=== PATIENT | female | born 1940 | race African-American/Black ===

== ENCOUNTER 2016-09-26 17:39 | Inpatient (IN) | payer MEDICARE ==
[~2016-09-26] VITALS: Ht 165.1 cm; Wt 68.9 kg
[2016-09-26 18:24] LABS: BASOPHILS % 0.9 % (0.0-2.0); HEMATOCRIT. 40.4 % (36.0-48.0); HEMOGLOBIN. 13.1 g/dL (12.0-16.0); LYMPHOCYTES % 36.3 % (20.0-50.0); MEAN CORPUSCULAR HEMOGLOBIN 25.3 pg (28.0-32.0); MEAN CORPUSCULAR VOLUME 78.1 fL (81.0-99.0); MEAN PLATELET VOLUME 8.6 fl (7.4-10.4); MONOCYTES % 6.4 % (2.0-8.0); NEUTROPHILS % 54.4 % (40.0-76.0); PLATELET 242 x1000/uL (130-400); RED BLOOD CELL COUNT 5.17 mill/uL (4.2-5.4); RED CELL DISTRIBUTION WIDTH 15.5 % (11.6-14.6)
[2016-09-26 18:27] LABS: INR 1.1; PROTHROMBIN TIME 11.2 sec
[2016-09-26 18:37] LABS: CARBON DIOXIDE 29 mEq/L (21-32); CHLORIDE 102 mEq/L (98-107); TROPONIN I < 0.02 ng/mL (0.00-0.04)
[2016-09-26] MEDS ORDERED: HYDRALAZINE HCL 50MG TABLET PO ONE (21:30)
[2016-09-26] MEDS ORDERED: HYDRALAZINE HCL 25MG TABLET PO NR (21:44)
[2016-09-27] VITALS (7 sets, daily range): BP systolic 134–193; BP diastolic 62–80
[2016-09-27] MEDS ORDERED: DEXTROSE 50% WATER 50ML SYRINGE IV PRN (01:45)
[2016-09-27] MEDS ORDERED: HYDROCODONE/ACETAMINOPHEN 5/325MG TABLET PO PRN (02:00)
[2016-09-27] MEDS ORDERED: ONDANSETRON HCL 4MG/2ML VIAL IV PRN (02:15)
[2016-09-27] MEDS: CLONIDINE 0.1MG TABLET PO PRN ×2 (05:36→17:12)
[2016-09-27] MEDS: BLOOD SUGAR DIAGNOSTIC STRIP TEST SCH ×4 (05:58→21:09)
[2016-09-27 06:25] LABS: BASOPHILS % 0.9 % (0.0-2.0); EOSINOPHILS % 3.6 % (0.0-5.0); HEMATOCRIT. 34.9 % (36.0-48.0); HEMOGLOBIN. 11.3 g/dL (12.0-16.0); LYMPHOCYTES % 44.3 % (20.0-50.0); MEAN CORPUSCULAR HEMOGLOBIN 25.6 pg (28.0-32.0); MEAN CORPUSCULAR VOLUME 78.7 fL (81.0-99.0); MEAN PLATELET VOLUME 8.8 fl (7.4-10.4); NEUTROPHILS % 43.2 % (40.0-76.0); PLATELET 205 x1000/uL (130-400); RED BLOOD CELL COUNT 4.43 mill/uL (4.2-5.4)
[2016-09-27] MEDS: INSULIN LISPRO 100 UNITS/ML SUBCUT SCH ×4 (06:29→21:00)
[2016-09-27] MEDS: HEPARIN 5000 UNITS/ML VIAL SUBCUT SCH ×2 (08:44→21:00)
[2016-09-27] MEDS: ASPIRIN 81MG TABLET PO SCH (08:44)
[2016-09-27] MEDS ORDERED: POTASSIUM CHLORIDE 20MEQ TABLET SR PO SCH (10:30)
[2016-09-27] MEDS: LOSARTAN POTASSIUM 100 MG TABLET PO SCH (20:59)
[2016-09-28] VITALS (7 sets, daily range): BP systolic 151–211; BP diastolic 66–91
[2016-09-28 02:33] LABS: CLARITY URINE CLEAR (CLEAR); COLOR URINE YELLOW (YELLOW); GLUCOSE URINE NEGATIVE (NEGATIVE); KETONES URINE NEGATIVE (NEGATIVE); LEUKOCYTE ESTERASE URINE 1+ (NEGATIVE); NITRITE URINE POSITIVE (NEGATIVE); OCCULT BLOOD URINE NEGATIVE (NEGATIVE); PH URINE 5.5 (4.5-8.0); PROTEIN URINE NEGATIVE (NEGATIVE); SPECIFIC GRAVITY URINE 1.013 (1.005-1.030)
[2016-09-28] MEDS: CLONIDINE 0.1MG TABLET PO PRN ×2 (04:24→11:35)
[2016-09-28] MEDS: INSULIN LISPRO 100 UNITS/ML SUBCUT SCH ×4 (06:36→21:00)
[2016-09-28] MEDS: BLOOD SUGAR DIAGNOSTIC STRIP TEST SCH ×4 (06:36→21:48)
[2016-09-28] MEDS: LOSARTAN POTASSIUM 100 MG TABLET PO SCH (08:32)
[2016-09-28] MEDS: HEPARIN 5000 UNITS/ML VIAL SUBCUT SCH ×2 (08:32→21:46)
[2016-09-28] MEDS: ASPIRIN 81MG TABLET PO SCH (08:32)
[2016-09-28] MEDS: HYDRALAZINE HCL 50MG TABLET PO SCH ×2 (09:10→13:38)
[2016-09-28] MEDS ORDERED: HYDRALAZINE HCL 100MG TABLET PO SCH (14:00)
[2016-09-28] MEDS ORDERED: HYDRALAZINE HCL 50MG TABLET PO NR (14:00)
[2016-09-28] MEDS: AMLODIPINE 10MG TABLET PO SCH (14:58)
[2016-09-28 18:07] LABS: CARBON DIOXIDE 26 mEq/L (21-32); CHLORIDE 106 mEq/L (98-107)
[2016-09-28] MEDS ORDERED: ATORVASTATIN CALCIUM 10MG TABLET PO SCH (21:00)
[2016-09-28] MEDS: HYDRALAZINE HCL 100MG TABLET PO SCH (21:46)
[2016-09-29] VITALS (7 sets, daily range): BP systolic 142–188; BP diastolic 62–93
[2016-09-29] MEDS: HYDRALAZINE HCL 100MG TABLET PO SCH ×2 (05:54→15:10)
[2016-09-29] MEDS: BLOOD SUGAR DIAGNOSTIC STRIP TEST SCH ×3 (05:57→18:15)
[2016-09-29] MEDS: INSULIN LISPRO 100 UNITS/ML SUBCUT SCH ×3 (05:57→18:15)
[2016-09-29 09:01] LABS: CARBON DIOXIDE 28 mEq/L (21-32); CHLORIDE 108 mEq/L (98-107)
[2016-09-29] MEDS: ASPIRIN 81MG TABLET PO SCH (10:31)
[2016-09-29] MEDS: LOSARTAN POTASSIUM 100 MG TABLET PO SCH (10:31)
[2016-09-29] MEDS: AMLODIPINE 10MG TABLET PO SCH (10:31)
[2016-09-29] MEDS: HEPARIN 5000 UNITS/ML VIAL SUBCUT SCH (10:32)
[2016-09-29] MEDS ORDERED: LACTULOSE 20G/30ML UDC PO NR (15:00)
[2016-09-29] MEDS ORDERED: ASCORBIC ACID 250 MG TABLET PO SCH (21:00)
[2016-09-30] MEDS ORDERED: MULTIVITAMINS,THER W-MINERALS TABLET PO SCH (09:00)
[2016-09-30] MEDS ORDERED: ZINC SULFATE 220 MG ( 50 ) CAPSULE PO SCH (09:00)
== END 2016-09-29 21:04 | DRG 64 ==
LOC: ER 18:25 → EDBEDREQTM 19:02 → 5WST 19:02 → EDBEDREQ 19:02 → ENRESERV 21:36
PROVIDERS: ADMIT Internal Medicine; ATTEND Internal Medicine
DX: I63.9 Cerebral infarction, unspecified (principal); N17.0 Acute kidney failure with tubular necrosis; E43 Unspecified severe protein-calorie malnutrition; G82.20 Paraplegia, unspecified; M13.0 Polyarthritis, unspecified; E11.42 Type 2 diabetes mellitus with diabetic polyneuropathy; M51.36 Other intervertebral disc degeneration, lumbar region; R32 Unspecified urinary incontinence; I10 Essential (primary) hypertension; Z96.649 Presence of unspecified artificial hip joint; Z99.3 Dependence on wheelchair; Z88.0 Allergy status to penicillin; Z87.891 Personal history of nicotine dependence; Z91.14 Patient's other noncompliance with medication regimen; Z91.11 Patient's noncompliance with dietary regimen; Z86.718 Personal history of other venous thrombosis and embolism
CPT/HCPCS: 36415; 70450; 70551; 71010; 80048; 80053; 80061; 81001; 82962; 83735; 83880; 84443; 84484; 85025; 85610; 93005; 93306; 93880; 97163; 97166; 99285; J1644; J1815; A4315

== ENCOUNTER 2016-09-29 20:35 | Inpatient (IN) | payer MEDICARE ==
[2016-09-28 22:30] VITALS: BP 161/77
[~2016-09-29] VITALS: Ht 165.1 cm; Wt 68.9 kg
[2016-09-29 21:35] VITALS: BP 161/77
[2016-09-29] MEDS ORDERED: HYDROCODONE/ACETAMINOPHEN 5/325MG TABLET PO PRN (22:00)
[2016-09-29] MEDS ORDERED: DEXTROSE 50% WATER 50ML SYRINGE IV PRN (22:00)
[2016-09-29] MEDS ORDERED: ONDANSETRON HCL 4MG/2ML VIAL IV PRN (22:00)
[2016-09-29] MEDS ORDERED: CLONIDINE 0.1MG TABLET PO PRN (22:00)
[2016-09-29 22:30] VITALS: BP 161/77
[2016-09-29] MEDS: INSULIN LISPRO 100 UNITS/ML SUBCUT SCH (22:30)
[2016-09-29] MEDS: ASCORBIC ACID 250 MG TABLET PO SCH (22:44)
[2016-09-29] MEDS: ATORVASTATIN CALCIUM 10MG TABLET PO SCH (22:44)
[2016-09-29] MEDS: HYDRALAZINE HCL 100MG TABLET PO SCH (22:44)
[2016-09-29] MEDS: BLOOD SUGAR DIAGNOSTIC STRIP TEST SCH (22:45)
[2016-09-29] MEDS: HEPARIN 5000 UNITS/ML VIAL SUBCUT SCH (22:45)
[2016-09-30 00:21] VITALS: BP 146/63
[2016-09-30] MEDS: HYDRALAZINE HCL 100MG TABLET PO SCH ×3 (06:00→21:14)
[2016-09-30] MEDS: BLOOD SUGAR DIAGNOSTIC STRIP TEST SCH ×4 (06:25→21:34)
[2016-09-30] MEDS: INSULIN LISPRO 100 UNITS/ML SUBCUT SCH ×4 (07:00→21:00)
[2016-09-30 08:00] VITALS: BP 154/64
[2016-09-30] MEDS: ZINC SULFATE 220 MG ( 50 ) CAPSULE PO SCH (09:01)
[2016-09-30] MEDS: MULTIVITAMINS,THER W-MINERALS TABLET PO SCH (09:02)
[2016-09-30] MEDS: ASPIRIN 81MG TABLET PO SCH (09:02)
[2016-09-30] MEDS: HEPARIN 5000 UNITS/ML VIAL SUBCUT SCH ×2 (09:02→21:14)
[2016-09-30] MEDS: ASCORBIC ACID 250 MG TABLET PO SCH ×2 (09:02→21:13)
[2016-09-30] MEDS: LOSARTAN POTASSIUM 100 MG TABLET PO SCH (09:04)
[2016-09-30] MEDS: AMLODIPINE 10MG TABLET PO SCH (09:06)
[2016-09-30] MEDS ORDERED: BISACODYL 5MG TABLET PO PRN (15:30)
[2016-09-30] MEDS: DOCUSATE SODIUM 100MG CAPSULE PO SCH ×2 (17:43→17:46)
[2016-09-30 20:00] VITALS: BP 158/71
[2016-09-30] MEDS ORDERED: ZOLPIDEM TARTRATE 5MG TABLET PO PRN (21:00)
[2016-09-30] MEDS: ATORVASTATIN CALCIUM 10MG TABLET PO SCH (21:13)
[2016-10-01] MEDS: HYDRALAZINE HCL 100MG TABLET PO SCH ×3 (05:27→21:41)
[2016-10-01] MEDS: BLOOD SUGAR DIAGNOSTIC STRIP TEST SCH ×4 (06:39→21:37)
[2016-10-01] MEDS: INSULIN LISPRO 100 UNITS/ML SUBCUT SCH ×4 (07:28→21:59)
[2016-10-01 07:48] LABS: BASOPHILS % 1.1 % (0.0-2.0); EOSINOPHILS % 2.7 % (0.0-5.0); HEMATOCRIT. 35.6 % (36.0-48.0); HEMOGLOBIN. 11.6 g/dL (12.0-16.0); LYMPHOCYTES % 48.3 % (20.0-50.0); MEAN CORPUSCULAR HEMOGLOBIN 25.5 pg (28.0-32.0); MEAN CORPUSCULAR VOLUME 78.6 fL (81.0-99.0); MEAN PLATELET VOLUME 8.9 fl (7.4-10.4); MONOCYTES % 6.4 % (2.0-8.0); NEUTROPHILS % 41.5 % (40.0-76.0); PLATELET 233 x1000/uL (130-400); RED BLOOD CELL COUNT 4.53 mill/uL (4.2-5.4); RED CELL DISTRIBUTION WIDTH 15.7 % (11.6-14.6)
[2016-10-01 08:00] VITALS: BP 138/71
[2016-10-01] MEDS: ZINC SULFATE 220 MG ( 50 ) CAPSULE PO SCH (08:34)
[2016-10-01] MEDS: MULTIVITAMINS,THER W-MINERALS TABLET PO SCH (08:34)
[2016-10-01] MEDS: ASPIRIN 81MG TABLET PO SCH (08:34)
[2016-10-01] MEDS: DOCUSATE SODIUM 100MG CAPSULE PO SCH ×2 (08:34→16:47)
[2016-10-01] MEDS: LOSARTAN POTASSIUM 100 MG TABLET PO SCH (08:35)
[2016-10-01] MEDS: ASCORBIC ACID 250 MG TABLET PO SCH ×2 (08:35→21:37)
[2016-10-01] MEDS: HEPARIN 5000 UNITS/ML VIAL SUBCUT SCH ×2 (08:35→21:37)
[2016-10-01] MEDS: AMLODIPINE 10MG TABLET PO SCH (08:35)
[2016-10-01 14:00] VITALS: BP 162/80
[2016-10-01 15:28] VITALS: BP 140/67
[2016-10-01 20:00] VITALS: BP 152/64
[2016-10-01] MEDS: ATORVASTATIN CALCIUM 10MG TABLET PO SCH (21:37)
[2016-10-02] MEDS: INSULIN LISPRO 100 UNITS/ML SUBCUT SCH ×4 (06:19→21:00)
[2016-10-02] MEDS: BLOOD SUGAR DIAGNOSTIC STRIP TEST SCH ×4 (06:19→21:29)
[2016-10-02] MEDS: HYDRALAZINE HCL 100MG TABLET PO SCH ×3 (06:19→21:34)
[2016-10-02 07:13] VITALS: BP 156/72
[2016-10-02] MEDS: AMLODIPINE 10MG TABLET PO SCH (08:17)
[2016-10-02] MEDS: DOCUSATE SODIUM 100MG CAPSULE PO SCH ×2 (08:18→17:31)
[2016-10-02] MEDS: LOSARTAN POTASSIUM 100 MG TABLET PO SCH (08:18)
[2016-10-02] MEDS: ASPIRIN 81MG TABLET PO SCH (08:18)
[2016-10-02] MEDS: ASCORBIC ACID 250 MG TABLET PO SCH ×2 (08:18→21:28)
[2016-10-02] MEDS: HEPARIN 5000 UNITS/ML VIAL SUBCUT SCH ×2 (08:18→21:29)
[2016-10-02] MEDS: ZINC SULFATE 220 MG ( 50 ) CAPSULE PO SCH (08:18)
[2016-10-02] MEDS: MULTIVITAMINS,THER W-MINERALS TABLET PO SCH (08:18)
[2016-10-02 12:45] VITALS: BP 128/63
[2016-10-02 20:00] VITALS: BP 163/72
[2016-10-02] MEDS: ATORVASTATIN CALCIUM 10MG TABLET PO SCH (21:28)
[2016-10-03] MEDS: BLOOD SUGAR DIAGNOSTIC STRIP TEST SCH ×4 (05:55→21:31)
[2016-10-03] MEDS: HYDRALAZINE HCL 100MG TABLET PO SCH ×2 (05:55→13:08)
[2016-10-03] MEDS: INSULIN LISPRO 100 UNITS/ML SUBCUT SCH ×4 (05:55→21:00)
[2016-10-03 08:00] VITALS: BP 138/66
[2016-10-03] MEDS: ASCORBIC ACID 250 MG TABLET PO SCH ×2 (09:01→21:30)
[2016-10-03] MEDS: HEPARIN 5000 UNITS/ML VIAL SUBCUT SCH ×2 (09:01→21:31)
[2016-10-03] MEDS: ASPIRIN 81MG TABLET PO SCH (09:01)
[2016-10-03] MEDS: LOSARTAN POTASSIUM 100 MG TABLET PO SCH (09:01)
[2016-10-03] MEDS: ZINC SULFATE 220 MG ( 50 ) CAPSULE PO SCH (09:01)
[2016-10-03] MEDS: MULTIVITAMINS,THER W-MINERALS TABLET PO SCH (09:01)
[2016-10-03] MEDS: AMLODIPINE 10MG TABLET PO SCH (09:01)
[2016-10-03] MEDS: DOCUSATE SODIUM 100MG CAPSULE PO SCH ×2 (09:01→17:00)
[2016-10-03] MEDS ORDERED: IRBE300T42 PO (14:41)
[2016-10-03] MEDS ORDERED: ASPI-986 PO (14:51)
[2016-10-03] MEDS ORDERED: CLON0.3T PO (14:51)
[2016-10-03] MEDS ORDERED: PANT40TA4 PO (14:51)
[2016-10-03] MEDS ORDERED: GLYB5TAB7 PO (14:51)
[2016-10-03] MEDS ORDERED: FURO40TA5 PO (14:51)
[2016-10-03] MEDS ORDERED: SIMV40TA5 PO (14:51)
[2016-10-03 16:00] VITALS: BP_SYST 128; BP_SYST 147; BP_DIAS 79; BP_DIAS 84
[2016-10-03 20:00] VITALS: BP 145/70
[2016-10-03] MEDS: HYDRALAZINE HCL 50MG TABLET PO SCH (21:31)
[2016-10-03] MEDS: ATORVASTATIN CALCIUM 10MG TABLET PO SCH (21:31)
[2016-10-04] MEDS: HYDRALAZINE HCL 50MG TABLET PO SCH ×3 (05:50→21:49)
[2016-10-04] MEDS: BLOOD SUGAR DIAGNOSTIC STRIP TEST SCH ×4 (05:50→20:47)
[2016-10-04] MEDS: INSULIN LISPRO 100 UNITS/ML SUBCUT SCH ×4 (05:50→21:08)
[2016-10-04 08:00] VITALS: BP 126/73
[2016-10-04] MEDS: MULTIVITAMINS,THER W-MINERALS TABLET PO SCH (08:40)
[2016-10-04] MEDS: ZINC SULFATE 220 MG ( 50 ) CAPSULE PO SCH (08:40)
[2016-10-04] MEDS: ASPIRIN 81MG TABLET PO SCH (08:40)
[2016-10-04] MEDS: AMLODIPINE 10MG TABLET PO SCH (08:40)
[2016-10-04] MEDS: ASCORBIC ACID 250 MG TABLET PO SCH ×2 (08:40→20:43)
[2016-10-04] MEDS: DOCUSATE SODIUM 100MG CAPSULE PO SCH ×2 (08:41→17:00)
[2016-10-04] MEDS: HEPARIN 5000 UNITS/ML VIAL SUBCUT SCH ×2 (08:41→20:43)
[2016-10-04 20:00] VITALS: BP 145/63
[2016-10-04] MEDS: ATORVASTATIN CALCIUM 10MG TABLET PO SCH (20:43)
[2016-10-05] MEDS: HYDRALAZINE HCL 50MG TABLET PO SCH ×3 (05:28→21:20)
[2016-10-05] MEDS: BLOOD SUGAR DIAGNOSTIC STRIP TEST SCH ×4 (06:18→21:19)
[2016-10-05] MEDS: INSULIN LISPRO 100 UNITS/ML SUBCUT SCH ×4 (07:26→21:00)
[2016-10-05 08:00] VITALS: BP 163/74
[2016-10-05] MEDS: DOCUSATE SODIUM 100MG CAPSULE PO SCH ×2 (08:36→16:46)
[2016-10-05] MEDS: ASPIRIN 81MG TABLET PO SCH (08:36)
[2016-10-05] MEDS: ASCORBIC ACID 250 MG TABLET PO SCH ×2 (08:36→21:19)
[2016-10-05] MEDS: ZINC SULFATE 220 MG ( 50 ) CAPSULE PO SCH (08:36)
[2016-10-05] MEDS: MULTIVITAMINS,THER W-MINERALS TABLET PO SCH (08:36)
[2016-10-05] MEDS: AMLODIPINE 10MG TABLET PO SCH (08:37)
[2016-10-05] MEDS: HEPARIN 5000 UNITS/ML VIAL SUBCUT SCH ×2 (08:37→21:19)
[2016-10-05] MEDS ORDERED: ZOLPIDEM TARTRATE 5MG TABLET PO PRN (19:00)
[2016-10-05] MEDS ORDERED: HYDROCODONE/ACETAMINOPHEN 5/325MG TABLET PO PRN (19:00)
[2016-10-05 20:00] VITALS: BP 168/73
[2016-10-05] MEDS: ATORVASTATIN CALCIUM 10MG TABLET PO SCH (21:19)
[2016-10-05 22:10] VITALS: BP 146/69
[2016-10-06] MEDS: HYDRALAZINE HCL 50MG TABLET PO SCH ×3 (05:53→21:11)
[2016-10-06] MEDS: BLOOD SUGAR DIAGNOSTIC STRIP TEST SCH ×4 (06:18→21:12)
[2016-10-06] MEDS: INSULIN LISPRO 100 UNITS/ML SUBCUT SCH ×4 (07:02→21:00)
[2016-10-06 07:53] VITALS: BP 162/68
[2016-10-06] MEDS: ZINC SULFATE 220 MG ( 50 ) CAPSULE PO SCH (08:21)
[2016-10-06] MEDS: ASCORBIC ACID 250 MG TABLET PO SCH ×2 (08:21→21:12)
[2016-10-06] MEDS: DOCUSATE SODIUM 100MG CAPSULE PO SCH ×2 (08:21→16:53)
[2016-10-06] MEDS: ASPIRIN 81MG TABLET PO SCH (08:21)
[2016-10-06] MEDS: MULTIVITAMINS,THER W-MINERALS TABLET PO SCH (08:21)
[2016-10-06] MEDS: AMLODIPINE 10MG TABLET PO SCH (08:21)
[2016-10-06] MEDS: HEPARIN 5000 UNITS/ML VIAL SUBCUT SCH ×2 (08:22→21:12)
[2016-10-06 20:00] VITALS: BP 148/73
[2016-10-06] MEDS: ATORVASTATIN CALCIUM 10MG TABLET PO SCH (21:12)
[2016-10-07] MEDS: HYDRALAZINE HCL 50MG TABLET PO SCH ×3 (06:30→21:38)
[2016-10-07] MEDS: BLOOD SUGAR DIAGNOSTIC STRIP TEST SCH ×4 (06:30→21:38)
[2016-10-07] MEDS: INSULIN LISPRO 100 UNITS/ML SUBCUT SCH ×4 (06:30→21:00)
[2016-10-07 08:00] VITALS: BP 166/90
[2016-10-07] MEDS: DOCUSATE SODIUM 100MG CAPSULE PO SCH ×2 (09:00→16:36)
[2016-10-07] MEDS: MULTIVITAMINS,THER W-MINERALS TABLET PO SCH (09:28)
[2016-10-07] MEDS: ZINC SULFATE 220 MG ( 50 ) CAPSULE PO SCH (09:28)
[2016-10-07] MEDS: AMLODIPINE 10MG TABLET PO SCH (09:28)
[2016-10-07] MEDS: ASCORBIC ACID 250 MG TABLET PO SCH ×2 (09:28→21:37)
[2016-10-07] MEDS: ASPIRIN 81MG TABLET PO SCH (09:28)
[2016-10-07] MEDS: HEPARIN 5000 UNITS/ML VIAL SUBCUT SCH ×2 (09:29→21:39)
[2016-10-07 11:21] VITALS: BP 134/79
[2016-10-07 13:39] VITALS: BP 152/64
[2016-10-07 20:00] VITALS: BP 168/58
[2016-10-07 20:27] LABS: CLARITY URINE TURBID (CLEAR); COLOR URINE YELLOW (YELLOW); GLUCOSE URINE NEGATIVE (NEGATIVE); KETONES URINE NEGATIVE (NEGATIVE); LEUKOCYTE ESTERASE URINE 3+ (NEGATIVE); NITRITE URINE NEGATIVE (NEGATIVE); OCCULT BLOOD URINE NEGATIVE (NEGATIVE); PH URINE 8.5 (4.5-8.0); PROTEIN URINE 1+ (NEGATIVE); SPECIFIC GRAVITY URINE 1.013 (1.005-1.030); UROBILINOGEN URINE 0.2 E.U./dL (0.2-1.0)
[2016-10-07] MEDS: ATORVASTATIN CALCIUM 10MG TABLET PO SCH (21:37)
[2016-10-08] MEDS: BLOOD SUGAR DIAGNOSTIC STRIP TEST SCH ×4 (05:57→21:06)
[2016-10-08] MEDS: HYDRALAZINE HCL 50MG TABLET PO SCH ×3 (05:57→21:06)
[2016-10-08] MEDS: INSULIN LISPRO 100 UNITS/ML SUBCUT SCH ×4 (05:57→21:00)
[2016-10-08 07:09] LABS: BASOPHILS % 1.3 % (0.0-2.0); EOSINOPHILS % 3.9 % (0.0-5.0); HEMATOCRIT 34.9 % (36.0-48.0); HEMATOCRIT. 34.9 % (36.0-48.0); HEMOGLOBIN 11.2 g/dL (12.0-16.0); HEMOGLOBIN. 11.2 g/dL (12.0-16.0); LYMPHOCYTES % 51.7 % (20.0-50.0); MEAN CORPUSCULAR VOLUME 80.6 fL (81.0-99.0); NEUTROPHILS % 36.1 % (40.0-76.0); PLATELET 250 x1000/uL (130-400); RED BLOOD CELL COUNT 4.33 mill/uL (4.2-5.4); RED CELL DISTRIBUTION WIDTH 16.2 % (11.6-14.6)
[2016-10-08 07:37] LABS: CARBON DIOXIDE 26 mEq/L (21-32); CHLORIDE 110 mEq/L (98-107)
[2016-10-08 07:59] VITALS: BP 158/75
[2016-10-08] MEDS: ASCORBIC ACID 250 MG TABLET PO SCH ×2 (08:44→21:06)
[2016-10-08] MEDS: ASPIRIN 81MG TABLET PO SCH (08:44)
[2016-10-08] MEDS: ZINC SULFATE 220 MG ( 50 ) CAPSULE PO SCH (08:44)
[2016-10-08] MEDS: AMLODIPINE 10MG TABLET PO SCH (08:44)
[2016-10-08] MEDS: MULTIVITAMINS,THER W-MINERALS TABLET PO SCH (08:44)
[2016-10-08] MEDS: DOCUSATE SODIUM 100MG CAPSULE PO SCH ×2 (08:45→16:57)
[2016-10-08] MEDS: HEPARIN 5000 UNITS/ML VIAL SUBCUT SCH ×2 (11:45→21:06)
[2016-10-08] MEDS ORDERED: LEVOFLOXACIN 500MG TABLET PO NR (12:34)
[2016-10-08] MEDS: LIDOCAINE 5% PATCH TOP SCH (14:29)
[2016-10-08 20:00] VITALS: BP 160/73
[2016-10-08] MEDS: ATORVASTATIN CALCIUM 10MG TABLET PO SCH (21:06)
[2016-10-08 22:00] VITALS: BP 156/66
[2016-10-09] MEDS: HYDRALAZINE HCL 50MG TABLET PO SCH ×3 (05:40→21:00)
[2016-10-09] MEDS: BLOOD SUGAR DIAGNOSTIC STRIP TEST SCH ×4 (06:27→20:55)
[2016-10-09] MEDS: INSULIN LISPRO 100 UNITS/ML SUBCUT SCH ×4 (07:18→20:55)
[2016-10-09 07:53] VITALS: BP 154/67
[2016-10-09] MEDS: ASPIRIN 81MG TABLET PO SCH (08:29)
[2016-10-09] MEDS: ASCORBIC ACID 250 MG TABLET PO SCH ×2 (08:29→20:55)
[2016-10-09] MEDS: AMLODIPINE 10MG TABLET PO SCH (08:29)
[2016-10-09] MEDS: MULTIVITAMINS,THER W-MINERALS TABLET PO SCH (08:29)
[2016-10-09] MEDS: ZINC SULFATE 220 MG ( 50 ) CAPSULE PO SCH (08:29)
[2016-10-09] MEDS: DOCUSATE SODIUM 100MG CAPSULE PO SCH ×2 (08:29→16:50)
[2016-10-09] MEDS: LIDOCAINE 5% PATCH TOP SCH (08:30)
[2016-10-09] MEDS: HEPARIN 5000 UNITS/ML VIAL SUBCUT SCH ×2 (08:30→20:55)
[2016-10-09] MEDS ORDERED: LEVOFLOXACIN 250MG TABLET PO SCH (11:00)
[2016-10-09 20:01] VITALS: BP 152/76
[2016-10-09] MEDS: ATORVASTATIN CALCIUM 10MG TABLET PO SCH (20:55)
[2016-10-10] MEDS: HYDRALAZINE HCL 50MG TABLET PO SCH ×3 (05:31→21:54)
[2016-10-10] MEDS: BLOOD SUGAR DIAGNOSTIC STRIP TEST SCH ×4 (06:17→21:55)
[2016-10-10] MEDS: INSULIN LISPRO 100 UNITS/ML SUBCUT SCH ×4 (07:28→21:00)
[2016-10-10 07:58] VITALS: BP 161/64
[2016-10-10] MEDS: ASCORBIC ACID 250 MG TABLET PO SCH ×2 (08:43→21:55)
[2016-10-10] MEDS: AMLODIPINE 10MG TABLET PO SCH (08:44)
[2016-10-10] MEDS: ZINC SULFATE 220 MG ( 50 ) CAPSULE PO SCH (08:44)
[2016-10-10] MEDS: MULTIVITAMINS,THER W-MINERALS TABLET PO SCH (08:44)
[2016-10-10] MEDS: ASPIRIN 81MG TABLET PO SCH (08:44)
[2016-10-10] MEDS: DOCUSATE SODIUM 100MG CAPSULE PO SCH ×2 (08:44→16:12)
[2016-10-10] MEDS: SULFAMETHOXAZOLE/TRIMETHOPRIM 800/160MG TABLET PO SCH ×2 (08:44→21:55)
[2016-10-10] MEDS: LIDOCAINE 5% PATCH TOP SCH (08:46)
[2016-10-10] MEDS: HEPARIN 5000 UNITS/ML VIAL SUBCUT SCH ×2 (11:08→21:55)
[2016-10-10 20:00] VITALS: BP 155/85
[2016-10-10] MEDS: ATORVASTATIN CALCIUM 10MG TABLET PO SCH (21:55)
[2016-10-11] MEDS: HYDRALAZINE HCL 50MG TABLET PO SCH ×2 (07:07→14:15)
[2016-10-11] MEDS: BLOOD SUGAR DIAGNOSTIC STRIP TEST SCH ×2 (07:08→11:20)
[2016-10-11] MEDS: INSULIN LISPRO 100 UNITS/ML SUBCUT SCH ×2 (07:08→11:24)
[2016-10-11 07:56] VITALS: BP 157/72
[2016-10-11] MEDS: DOCUSATE SODIUM 100MG CAPSULE PO SCH (08:51)
[2016-10-11] MEDS: ASPIRIN 81MG TABLET PO SCH (08:51)
[2016-10-11] MEDS: ZINC SULFATE 220 MG ( 50 ) CAPSULE PO SCH (08:51)
[2016-10-11] MEDS: ASCORBIC ACID 250 MG TABLET PO SCH (08:52)
[2016-10-11] MEDS: SULFAMETHOXAZOLE/TRIMETHOPRIM 800/160MG TABLET PO SCH (08:52)
[2016-10-11] MEDS: AMLODIPINE 10MG TABLET PO SCH (08:52)
[2016-10-11] MEDS: MULTIVITAMINS,THER W-MINERALS TABLET PO SCH (08:52)
[2016-10-11] MEDS: LIDOCAINE 5% PATCH TOP SCH (08:53)
[2016-10-11] MEDS: HEPARIN 5000 UNITS/ML VIAL SUBCUT SCH (08:56)
[2016-10-11 11:48] VITALS: BP 157/72
== END 2016-10-11 17:15 | disposition home health service (06) | DRG 65 ==
PROVIDERS: ADMIT Psychiatry & Neurology Neurology; ATTEND Internal Medicine
DX: I63.9 Cerebral infarction, unspecified (principal); G82.20 Paraplegia, unspecified; N39.0 Urinary tract infection, site not specified; Z96.649 Presence of unspecified artificial hip joint; R32 Unspecified urinary incontinence; N31.9 Neuromuscular dysfunction of bladder, unspecified; M13.0 Polyarthritis, unspecified; I10 Essential (primary) hypertension; R26.89 Other abnormalities of gait and mobility; M19.90 Unspecified osteoarthritis, unspecified site; E11.9 Type 2 diabetes mellitus without complications; M54.5 Low back pain; Z99.3 Dependence on wheelchair; Z83.3 Family history of diabetes mellitus; Z82.49 Family history of ischemic heart disease and other diseases of the circulatory system; Z86.718 Personal history of other venous thrombosis and embolism; Z79.899 Other long term (current) drug therapy; Z79.82 Long term (current) use of aspirin
CPT/HCPCS: 36415; 73562; 80048; 80053; 81001; 82962; 85025; 85027; 87077; 87086; 87186; 97110; 97112; 97162; 97164; 97167; 97530; 97535; 97542; A6261; C1893; J1644; J1815

== ENCOUNTER 2017-02-09 19:12 | Emergency (ER) | payer MEDICARE ==
[~2017-02-09] VITALS: Ht 167.6 cm; Wt 85.0 kg
[~2017-02-09 19:12] MED LIST: ASPI-986 PO; CLON0.3T PO; FURO40TA5 PO; GLYB5TAB7 PO; IRBE300T42 PO; PANT40TA4 PO; SIMV40TA5 PO
[2017-02-09 21:01] LABS: CLARITY URINE TURBID (CLEAR); COLOR URINE YELLOW (YELLOW); GLUCOSE URINE NEGATIVE (NEGATIVE); KETONES URINE TRACE (NEGATIVE); LEUKOCYTE ESTERASE URINE 3+ (NEGATIVE); NITRITE URINE NEGATIVE (NEGATIVE); OCCULT BLOOD URINE 2+ (NEGATIVE); PROTEIN URINE 3+ (NEGATIVE); SPECIFIC GRAVITY URINE 1.016 (1.005-1.030)
[2017-02-09] MEDS ORDERED: LEVOFLOXACIN 250MG TABLET PO NR (21:15)
[2017-02-09 23:47] VITALS: BP 142/72
== END 2017-02-09 23:56 | disposition home or self-care (01) ==
LOC: ER 19:23
DX: N39.0 Urinary tract infection, site not specified (principal); I10 Essential (primary) hypertension; E11.9 Type 2 diabetes mellitus without complications; Z96.649 Presence of unspecified artificial hip joint; Z88.0 Allergy status to penicillin; Z79.82 Long term (current) use of aspirin; Z99.3 Dependence on wheelchair
CPT/HCPCS: 51702; 81001; 87077; 87086; 87186; 99284; A4315

== ENCOUNTER 2017-04-02 11:27 | Emergency (ER) | payer MEDICARE ==
[~2017-04-02] VITALS: Ht 165.1 cm; Wt 70.0 kg
[2017-04-02] MEDS ORDERED: SODIUM CHLORIDE 0.9% 1,000 ML IV ONE (12:13)
[2017-04-02 12:24] LABS: CLARITY URINE CLEAR (CLEAR); COLOR URINE YELLOW (YELLOW); KETONES URINE NEGATIVE (NEGATIVE); LEUKOCYTE ESTERASE URINE TRACE (NEGATIVE); NITRITE URINE NEGATIVE (NEGATIVE); OCCULT BLOOD URINE NEGATIVE (NEGATIVE); PH URINE 6.5 (4.5-8.0); PROTEIN URINE 2+ (NEGATIVE); SPECIFIC GRAVITY URINE 1.017 (1.005-1.030); UROBILINOGEN URINE 0.2 E.U./dL (0.2-1.0)
[2017-04-02 12:45] LABS: BASOPHILS % 0.4 % (0.0-2.0); EOSINOPHILS % 3.3 % (0.0-5.0); HEMATOCRIT. 38.2 % (36.0-48.0); HEMOGLOBIN. 12.2 g/dL (12.0-16.0); LYMPHOCYTES % 50.6 % (20.0-50.0); MEAN CORPUSCULAR HEMOGLOBIN 25.9 pg (28.0-32.0); MEAN CORPUSCULAR VOLUME 81.2 fL (81.0-99.0); MONOCYTES % 5.9 % (2.0-8.0); NEUTROPHILS % 39.8 % (40.0-76.0); PLATELET 252 x1000/uL (130-400); RED CELL DISTRIBUTION WIDTH 16.4 % (11.6-14.6)
[2017-04-02 12:50] LABS: CARBON DIOXIDE 29 mEq/L (21-32); CHLORIDE 108 mEq/L (98-107)
[2017-04-02] MEDS ORDERED: HYDRALAZINE 20MG/ML VIAL IV ONE ×2 (14:45→16:15)
[2017-04-02 15:00] VITALS: BP 160/97
[2017-04-02] MEDS ORDERED: CLONIDINE 0.1MG TABLET PO ONE (15:00)
== END 2017-04-02 16:29 | disposition home or self-care (01) ==
LOC: ER 11:33
DX: T83.83XA Hemorrhage due to genitourinary prosthetic devices, implants and grafts, initial encounter (principal); L89.153 Pressure ulcer of sacral region, stage 3; I10 Essential (primary) hypertension; E78.00 Pure hypercholesterolemia, unspecified; E11.9 Type 2 diabetes mellitus without complications; Z86.73 Personal history of transient ischemic attack (TIA), and cerebral infarction without residual deficits; Z96.649 Presence of unspecified artificial hip joint; Z88.0 Allergy status to penicillin; Z79.82 Long term (current) use of aspirin
CPT/HCPCS: 36415; 51702; 80048; 81001; 85025; 87086; 96374; 99284; J0360; J7030

== ENCOUNTER 2017-08-09 22:41 | Emergency (ER) | payer MEDICARE ==
[~2017-08-09] VITALS: Ht 167.6 cm; Wt 100.0 kg
[2017-08-09] MEDS ORDERED: ACETAMINOPHEN WITH CODEINE 300/30MG TABLET PO ONE (23:45)
[2017-08-10 06:03] VITALS: BP 170/76
== END 2017-08-10 06:05 | disposition home or self-care (01) ==
LOC: ER 22:55
DX: S80.01XA Contusion of right knee, initial encounter (principal); Z46.6 Encounter for fitting and adjustment of urinary device; M79.672 Pain in left foot; E11.9 Type 2 diabetes mellitus without complications; I10 Essential (primary) hypertension; Z86.73 Personal history of transient ischemic attack (TIA), and cerebral infarction without residual deficits; Z88.0 Allergy status to penicillin; Z79.82 Long term (current) use of aspirin; W06.XXXA Fall from bed, initial encounter; Y93.89 Activity, other specified; Y92.89 Other specified places as the place of occurrence of the external cause; Y99.8 Other external cause status
CPT/HCPCS: 51702; 73560; 73620; 99284

== ENCOUNTER 2017-10-23 16:12 | Emergency (ER) | payer MEDICARE ==
[~2017-10-23] VITALS: Ht 162.6 cm; Wt 70.0 kg
[~2017-10-23 16:12] MED LIST changes: -CLON0.3T PO; -IRBE300T42 PO; -SIMV40TA5 PO
[2017-10-24] MEDS ORDERED: SODIUM CHLORIDE 0.9% 1,000 ML IV ONE (01:35)
[2017-10-24] MEDS ORDERED: KETOROLAC 30MG/ML VIAL IV STA (01:35)
[2017-10-24 02:34] LABS: BASOPHILS % 0.3 % (0.0-2.0); HEMATOCRIT. 40.5 % (36.0-48.0); HEMOGLOBIN. 13.1 g/dL (12.0-16.0); LYMPHOCYTES % 15.6 % (20.0-50.0); MEAN CORPUSCULAR HEMOGLOBIN 25.2 pg (28.0-32.0); MEAN CORPUSCULAR VOLUME 77.8 fL (81.0-99.0); MEAN PLATELET VOLUME 8.5 fl (7.4-10.4); MONOCYTES % 4.4 % (2.0-8.0); NEUTROPHILS % 79.7 % (40.0-76.0); PLATELET 251 x1000/uL (130-400); RED CELL DISTRIBUTION WIDTH 18.2 % (11.6-14.6)
[2017-10-24 02:41] LABS: INR 1.1; PROTHROMBIN TIME 11.4 sec (9.4-11.6)
[2017-10-24 02:45] LABS: CHLORIDE 105 mEq/L (98-107)
[2017-10-24 02:53] LABS: CLARITY URINE TURBID (CLEAR); COLOR URINE YELLOW (YELLOW); KETONES URINE TRACE (NEGATIVE); LEUKOCYTE ESTERASE URINE 3+ (NEGATIVE); NITRITE URINE NEGATIVE (NEGATIVE); OCCULT BLOOD URINE 1+ (NEGATIVE); PROTEIN URINE 3+ (NEGATIVE); SPECIFIC GRAVITY URINE 1.016 (1.005-1.030)
[2017-10-24] MEDS ORDERED: CLONIDINE 0.1MG TABLET PO ONE (08:15)
[2017-10-24 12:31] VITALS: BP 175/81
== END 2017-10-24 17:08 | disposition home or self-care (01) ==
LOC: ER 17:17
DX: N39.0 Urinary tract infection, site not specified (principal); M17.12 Unilateral primary osteoarthritis, left knee; E11.9 Type 2 diabetes mellitus without complications; I10 Essential (primary) hypertension; Z86.73 Personal history of transient ischemic attack (TIA), and cerebral infarction without residual deficits; Z88.0 Allergy status to penicillin; Z79.82 Long term (current) use of aspirin; Z79.899 Other long term (current) drug therapy
CPT/HCPCS: 36415; 71045; 73562; 80053; 81003; 82962; 85025; 85610; 87086; 93005; 93971; 96374; 99285; J1885; J7030

== ENCOUNTER 2017-12-03 15:24 | Emergency (ER) | payer MEDICARE ==
[~2017-12-03] VITALS: Ht 175.3 cm; Wt 98.0 kg
[2017-12-03] MEDS ORDERED: CLONIDINE 0.1MG TABLET PO ONE (17:15)
[2017-12-03] MEDS ORDERED: FUROSEMIDE 40MG TABLET PO ONE (17:15)
[2017-12-03] MEDS ORDERED: LEVOFLOXACIN 500MG TABLET PO ONE (18:00)
[2017-12-03] MEDS: CLONIDINE 0.1MG TABLET PO SCH (22:50)
[2017-12-04] MEDS ORDERED: FUROSEMIDE 40MG TABLET PO ONE (00:15)
[2017-12-04 01:48] LABS: CLARITY URINE CLEAR (CLEAR); COLOR URINE YELLOW (YELLOW); KETONES URINE NEGATIVE (NEGATIVE); LEUKOCYTE ESTERASE URINE NEGATIVE (NEGATIVE); NITRITE URINE NEGATIVE (NEGATIVE); OCCULT BLOOD URINE 2+ (NEGATIVE); PH URINE 7.5 (4.5-8.0); PROTEIN URINE 1+ (NEGATIVE); SPECIFIC GRAVITY URINE 1.007 (1.005-1.030); UROBILINOGEN URINE 0.2 E.U./dL (0.2-1.0)
[2017-12-04 01:59] LABS: *AMPHETAMINES SCREEN URINE NEGATIVE (NEGATIVE); *BARBITURATES SCREEN URINE NEGATIVE (NEGATIVE); *BENZODIAZEPINES SCREEN URINE NEGATIVE (NEGATIVE); *COCAINE SCREEN URINE NEGATIVE (NEGATIVE); CANNABINOID URINE SCREEN NEGATIVE (NEGATIVE); OPIATES URINE SCREEN NEGATIVE (NEGATIVE); PHENCYCLIDINE URINE SCREEN NEGATIVE (NEGATIVE)
[2017-12-04 02:00] LABS: METHADONE URINE SCREEN NEGATIVE (NEGATIVE)
[2017-12-04] MEDS: CLONIDINE 0.1MG TABLET PO SCH ×2 (07:02→11:15)
[2017-12-04 12:06] VITALS: BP 154/79
== END 2017-12-04 12:32 | disposition home or self-care (01) ==
LOC: ER 15:24
DX: I11.0 Hypertensive heart disease with heart failure (principal); I50.9 Heart failure, unspecified; N39.0 Urinary tract infection, site not specified; F41.9 Anxiety disorder, unspecified; E11.9 Type 2 diabetes mellitus without complications; K21.9 Gastro-esophageal reflux disease without esophagitis; Z53.29 Procedure and treatment not carried out because of patient's decision for other reasons; Z88.0 Allergy status to penicillin; Z79.82 Long term (current) use of aspirin
CPT/HCPCS: 80305; 81003; 82962; 99284

== ENCOUNTER 2018-03-14 11:00 | Emergency (ER) | payer MEDICARE ==
[~2018-03-14] VITALS: Ht 170.2 cm; Wt 72.0 kg
[2018-03-14 14:45] LABS: CLARITY URINE TURBID (CLEAR); COLOR URINE YELLOW (YELLOW); KETONES URINE NEGATIVE (NEGATIVE); LEUKOCYTE ESTERASE URINE 3+ (NEGATIVE); NITRITE URINE NEGATIVE (NEGATIVE); OCCULT BLOOD URINE 1+ (NEGATIVE); PH URINE 6.5 (4.5-8.0); PROTEIN URINE 2+ (NEGATIVE); SPECIFIC GRAVITY URINE 1.008 (1.005-1.030)
[2018-03-14] MEDS ORDERED: LABETALOL HCL 20MG/4ML CARPUJECT IV ONE (19:00)
[2018-03-14 19:20] VITALS: BP 176/58
== END 2018-03-14 19:22 | disposition home or self-care (01) ==
LOC: ER 11:00
DX: Z46.6 Encounter for fitting and adjustment of urinary device (principal); I10 Essential (primary) hypertension; N39.0 Urinary tract infection, site not specified; E11.9 Type 2 diabetes mellitus without complications; M19.90 Unspecified osteoarthritis, unspecified site; Z86.73 Personal history of transient ischemic attack (TIA), and cerebral infarction without residual deficits; Z96.649 Presence of unspecified artificial hip joint; Z88.0 Allergy status to penicillin; Z79.82 Long term (current) use of aspirin
CPT/HCPCS: 51702; 81003; 82962; 87077; 87086; 87186; 96374; 99284; J3490

== ENCOUNTER 2018-04-27 16:30 | Inpatient (IN) | payer MEDICARE ==
[~2018-04-27] VITALS: Ht 175.3 cm; Wt 89.9 kg
[2018-04-27] MEDS ORDERED: HYDRALAZINE HCL 100MG TABLET PO ONE (20:00)
[2018-04-27 22:51] LABS: CLARITY URINE TURBID (CLEAR); COLOR URINE DARK YELLOW (YELLOW); KETONES URINE TRACE (NEGATIVE); LEUKOCYTE ESTERASE URINE 2+ (NEGATIVE); NITRITE URINE NEGATIVE (NEGATIVE); OCCULT BLOOD URINE NEGATIVE (NEGATIVE); PROTEIN URINE 2+ (NEGATIVE); SPECIFIC GRAVITY URINE 1.023 (1.005-1.030)
[2018-04-27 23:40] LABS: BASOPHILS % 1.6 % (0.0-2.0); EOSINOPHILS % 5.3 % (0.0-5.0); HEMATOCRIT. 33.7 % (36.0-48.0); HEMOGLOBIN. 10.6 g/dL (12.0-16.0); LYMPHOCYTES % 28.5 % (20.0-50.0); MEAN CORPUSCULAR HEMOGLOBIN 24.8 pg (28.0-32.0); MEAN CORPUSCULAR VOLUME 79.2 fL (81.0-99.0); MEAN PLATELET VOLUME 8.1 fl (7.4-10.4); MONOCYTES % 6.4 % (2.0-8.0); NEUTROPHILS % 58.2 % (40.0-76.0); PLATELET 318 x1000/uL (130-400); RED BLOOD CELL COUNT 4.26 mill/uL (4.2-5.4); RED CELL DISTRIBUTION WIDTH 17.3 % (11.6-14.6)
[2018-04-27 23:44] LABS: CHLORIDE 112 mEq/L (98-107)
[2018-04-28 04:00] VITALS: BP 185/68
[2018-04-28 05:05] VITALS: BP 161/77
[2018-04-28] MEDS ORDERED: PANT40TA4 PO (05:20)
[2018-04-28] MEDS ORDERED: HYDR100T26 PO (05:20)
[2018-04-28] MEDS ORDERED: LOSA50TA20 PO (05:20)
[2018-04-28 08:00] VITALS: BP 211/90
[2018-04-28] MEDS ORDERED: DEXTROSE 50% WATER 50ML SYRINGE IV PRN (08:45)
[2018-04-28] MEDS ORDERED: CLONIDINE 0.2MG TABLET PO SCH (08:45)
[2018-04-28] MEDS ORDERED: CARVEDILOL 3.125 MG TABLET PO NR (10:30)
[2018-04-28] MEDS: BLOOD SUGAR DIAGNOSTIC STRIP TEST SCH ×3 (12:33→21:24)
[2018-04-28] MEDS: INSULIN LISPRO 100 UNITS/ML SUBCUT SCH ×3 (12:33→21:00)
[2018-04-28 12:59] LABS: HEMATOCRIT 30.4 % (36.0-48.0); HEMOGLOBIN 9.4 g/dL (12.0-16.0); MEAN CORPUSCULAR HEMOGLOBIN 24.7 pg (28.0-32.0); MEAN CORPUSCULAR VOLUME 79.7 fL (81.0-99.0); PLATELET 273 x1000/uL (130-400); RED BLOOD CELL COUNT 3.81 mill/uL (4.2-5.4); RED CELL DISTRIBUTION WIDTH 17.7 % (11.6-14.6)
[2018-04-28 13:12] LABS: CHLORIDE 113 mEq/L (98-107)
[2018-04-28] MEDS ORDERED: DOCUSATE SODIUM 100MG CAPSULE PO PRN (13:15)
[2018-04-28] MEDS ORDERED: ONDANSETRON HCL 4MG/2ML INJ IV PRN (13:15)
[2018-04-28] MEDS ORDERED: HYDROCODONE/ACETAMINOPHEN 5/325MG TABLET PO PRN (13:15)
[2018-04-28] MEDS ORDERED: DIPHENHYDRAMINE 50MG/ML VIAL IV PRN (13:15)
[2018-04-28] MEDS ORDERED: SODIUM CHLORIDE 0.45% 1,000 ML IV SCH (13:15)
[2018-04-28] MEDS: LOSARTAN POTASSIUM 100 MG TABLET PO SCH (13:24)
[2018-04-28] MEDS: AMLODIPINE 5MG TABLET PO SCH (13:24)
[2018-04-28] MEDS ORDERED: SULFAMETHOXAZOLE/TRIMETHOPRIM 400/80MG TAB PO NR (13:30)
[2018-04-28] MEDS: HYDRALAZINE HCL 50MG TABLET PO SCH ×2 (14:00→21:26)
[2018-04-28] MEDS ORDERED: HYDRALAZINE HCL 50MG TABLET PO SCH (14:00)
[2018-04-28 16:00] VITALS: BP 150/57
[2018-04-28] MEDS ORDERED: POTASSIUM CHLORIDE 20MEQ TABLET SR PO NR (16:00)
[2018-04-28] MEDS: ASPIRIN 81MG TABLET PO SCH (16:26)
[2018-04-28 20:00] VITALS: BP 163/63
[2018-04-28] MEDS ORDERED: CARVEDILOL 3.125 MG TABLET PO SCH (21:00)
[2018-04-28] MEDS: SULFAMETHOXAZOLE/TRIMETHOPRIM 400/80MG TAB PO SCH (21:24)
[2018-04-29] VITALS: BP 154/71
[2018-04-29 04:00] VITALS: BP 172/61
[2018-04-29] MEDS: HYDRALAZINE HCL 50MG TABLET PO SCH ×3 (05:52→22:23)
[2018-04-29] MEDS: BLOOD SUGAR DIAGNOSTIC STRIP TEST SCH ×4 (06:56→20:57)
[2018-04-29] MEDS: INSULIN LISPRO 100 UNITS/ML SUBCUT SCH ×4 (06:56→20:54)
[2018-04-29 07:50] LABS: HEMATOCRIT 30.4 % (36.0-48.0); HEMOGLOBIN 9.5 g/dL (12.0-16.0); MEAN CORPUSCULAR HEMOGLOBIN 24.7 pg (28.0-32.0); MEAN CORPUSCULAR VOLUME 78.9 fL (81.0-99.0); PLATELET 258 x1000/uL (130-400); RED BLOOD CELL COUNT 3.86 mill/uL (4.2-5.4); RED CELL DISTRIBUTION WIDTH 17.6 % (11.6-14.6)
[2018-04-29 07:56] LABS: CHLORIDE 112 mEq/L (98-107)
[2018-04-29 08:00] VITALS: BP 154/49
[2018-04-29 08:12] LABS: LDL CHOLESTEROL 88 mg/dL (5-100); TOTAL IRON BINDING CAPACITY 108 ug/dL (250-450)
[2018-04-29 08:14] LABS: HDL CHOLESTEROL 28 mg/dL (40-59); T4 FREE 1.44 ng/dL (0.76-1.46)
[2018-04-29] MEDS: ASPIRIN 81MG TABLET PO SCH (08:33)
[2018-04-29] MEDS: SULFAMETHOXAZOLE/TRIMETHOPRIM 400/80MG TAB PO SCH ×2 (08:33→20:53)
[2018-04-29] MEDS ORDERED: MINOXIDIL 2.5MG TABLET PO SCH (09:30)
[2018-04-29] MEDS: LOSARTAN POTASSIUM 100 MG TABLET PO SCH (11:10)
[2018-04-29] MEDS: AMLODIPINE 5MG TABLET PO SCH (11:25)
[2018-04-29 12:00] VITALS: BP 181/61
[2018-04-29 16:00] VITALS: BP 167/56
[2018-04-29] MEDS ORDERED: ACETAMINOPHEN 650MG/20.3ML UDC PO PRN (17:00)
[2018-04-29] MEDS ORDERED: DIPHENHYDRAMINE 50MG/ML VIAL IV PRN (17:00)
[2018-04-29] MEDS: SODIUM CHLORIDE 0.45% 1,000 ML IV SCH (17:00)
[2018-04-29] MEDS ORDERED: METHYLPREDNISOLONE SOD SUCC 125 MG/2 ML VIAL IV PRN (17:00)
[2018-04-29] MEDS: FERROUS SULFATE 325MG TABLET PO SCH (17:57)
[2018-04-29 20:00] VITALS: BP 185/66
[2018-04-29] MEDS: MINOXIDIL 2.5MG TABLET PO SCH (20:51)
[2018-04-30] VITALS: BP 175/61
[2018-04-30 04:00] VITALS: BP 125/50
[2018-04-30] MEDS: HYDRALAZINE HCL 50MG TABLET PO SCH ×3 (06:00→22:16)
[2018-04-30] MEDS: BLOOD SUGAR DIAGNOSTIC STRIP TEST SCH ×4 (06:05→21:00)
[2018-04-30] MEDS: INSULIN LISPRO 100 UNITS/ML SUBCUT SCH ×4 (06:07→21:00)
[2018-04-30 06:11] LABS: CHLORIDE 111 mEq/L (98-107)
[2018-04-30 06:21] LABS: HEMATOCRIT 36.2 % (36.0-48.0); HEMOGLOBIN 11.4 g/dL (12.0-16.0); MEAN CORPUSCULAR HEMOGLOBIN 24.8 pg (28.0-32.0); MEAN CORPUSCULAR VOLUME 78.4 fL (81.0-99.0); PLATELET 149 x1000/uL (130-400); RED BLOOD CELL COUNT 4.62 mill/uL (4.2-5.4); RED CELL DISTRIBUTION WIDTH 18.1 % (11.6-14.6)
[2018-04-30 08:00] VITALS: BP 173/85
[2018-04-30] MEDS: SULFAMETHOXAZOLE/TRIMETHOPRIM 400/80MG TAB PO SCH ×2 (09:02→22:09)
[2018-04-30] MEDS: FERROUS SULFATE 325MG TABLET PO SCH ×3 (09:08→18:23)
[2018-04-30] MEDS: AMLODIPINE 5MG TABLET PO SCH (09:09)
[2018-04-30] MEDS: ASPIRIN 81MG TABLET PO SCH (09:09)
[2018-04-30] MEDS: LOSARTAN POTASSIUM 100 MG TABLET PO SCH (09:10)
[2018-04-30] MEDS: MINOXIDIL 2.5MG TABLET PO SCH ×2 (09:10→22:09)
[2018-04-30 12:00] VITALS: BP 156/111
[2018-04-30 16:00] VITALS: BP 145/61
[2018-04-30] MEDS: SODIUM CHLORIDE 0.45% 1,000 ML IV SCH (17:00)
[2018-04-30 20:00] VITALS: BP 144/53
[2018-05-01] VITALS: BP 159/60
[2018-05-01 04:00] VITALS: BP 148/57
[2018-05-01] MEDS: BLOOD SUGAR DIAGNOSTIC STRIP TEST SCH ×4 (07:02→21:27)
[2018-05-01] MEDS: INSULIN LISPRO 100 UNITS/ML SUBCUT SCH ×4 (07:02→21:00)
[2018-05-01] MEDS: HYDRALAZINE HCL 50MG TABLET PO SCH ×3 (07:02→22:00)
[2018-05-01 08:00] VITALS: BP 101/43
[2018-05-01] MEDS: MINOXIDIL 2.5MG TABLET PO SCH ×2 (09:00→21:00)
[2018-05-01] MEDS: LOSARTAN POTASSIUM 100 MG TABLET PO SCH (09:00)
[2018-05-01] MEDS: AMLODIPINE 5MG TABLET PO SCH (09:00)
[2018-05-01] MEDS: ASPIRIN 81MG TABLET PO SCH (10:22)
[2018-05-01] MEDS: SULFAMETHOXAZOLE/TRIMETHOPRIM 400/80MG TAB PO SCH (10:22)
[2018-05-01] MEDS: FERROUS SULFATE 325MG TABLET PO SCH ×3 (10:22→17:27)
[2018-05-01 12:00] VITALS: BP 121/38
[2018-05-01] MEDS ORDERED: CLONIDINE 0.1MG TABLET PO PRN (15:30)
[2018-05-01 16:00] VITALS: BP 119/48
[2018-05-01] MEDS: DEXT 5%/0.45% NACL 1000ML 1,000 ML IV SCH (16:00)
[2018-05-01] MEDS: NITROFURANTOIN 100MG M/M CAPSULE PO SCH (17:27)
[2018-05-01 20:00] VITALS: BP 147/50
[2018-05-02] VITALS: BP 143/48
[2018-05-02 04:00] VITALS: BP 151/61
[2018-05-02] MEDS: NITROFURANTOIN 100MG M/M CAPSULE PO SCH ×2 (06:00→17:43)
[2018-05-02] MEDS: HYDRALAZINE HCL 50MG TABLET PO SCH ×3 (06:00→22:00)
[2018-05-02] MEDS: BLOOD SUGAR DIAGNOSTIC STRIP TEST SCH ×4 (06:26→21:00)
[2018-05-02 07:05] LABS: CHLORIDE 113 mEq/L (98-107)
[2018-05-02 07:19] LABS: CREATINE KINASE MB FRACTION 2.2 ng/mL (0.5-3.6)
[2018-05-02 07:20] LABS: CREATINE KINASE 80 IU/L (26-192); LDL CHOLESTEROL 81 mg/dL (5-100)
[2018-05-02 07:21] LABS: HDL CHOLESTEROL 35 mg/dL (40-59)
[2018-05-02] MEDS: INSULIN LISPRO 100 UNITS/ML SUBCUT SCH ×4 (07:50→21:00)
[2018-05-02 08:00] VITALS: BP 154/53
[2018-05-02 08:46] LABS: BASOPHILS % 1.1 % (0.0-2.0); EOSINOPHILS % 4.8 % (0.0-5.0); HEMATOCRIT. 31.1 % (36.0-48.0); HEMOGLOBIN. 9.6 g/dL (12.0-16.0); LYMPHOCYTES % 34.4 % (20.0-50.0); MEAN CORPUSCULAR HEMOGLOBIN 24.8 pg (28.0-32.0); MEAN CORPUSCULAR VOLUME 80.4 fL (81.0-99.0); MEAN PLATELET VOLUME 8.4 fl (7.4-10.4); MONOCYTES % 8.7 % (2.0-8.0); PLATELET 273 x1000/uL (130-400); RED BLOOD CELL COUNT 3.87 mill/uL (4.2-5.4); RED CELL DISTRIBUTION WIDTH 18.4 % (11.6-14.6)
[2018-05-02] MEDS ORDERED: ACETAMINOPHEN 325MG TABLET PO NR (09:00)
[2018-05-02] MEDS ORDERED: METHYLPREDNISOLONE SOD SUCC 125 MG/2 ML VIAL IV NR (09:00)
[2018-05-02] MEDS ORDERED: DIPHENHYDRAMINE 50MG/ML VIAL IV NR (09:00)
[2018-05-02] MEDS: MINOXIDIL 2.5MG TABLET PO SCH ×2 (09:42→21:00)
[2018-05-02] MEDS: LOSARTAN POTASSIUM 100 MG TABLET PO SCH (09:45)
[2018-05-02] MEDS: FERROUS SULFATE 325MG TABLET PO SCH ×3 (09:45→17:43)
[2018-05-02] MEDS: AMLODIPINE 5MG TABLET PO SCH (09:46)
[2018-05-02] MEDS: DEXT 5%/0.45% NACL 1000ML 1,000 ML IV SCH (11:42)
[2018-05-02 12:00] VITALS: BP_SYST 133; BP_DIAS 44; BP_DIAS 48
[2018-05-02 15:34] LABS: PROTHROMBIN TIME 10.1 sec (9.1-11.1)
[2018-05-02 16:00] VITALS: BP 131/48
[2018-05-02] MEDS: ENOXAPARIN 100MG/ML SYR SUBCUT SCH (18:09)
[2018-05-02 20:00] VITALS: BP 141/48
[2018-05-02] MEDS ORDERED: HYDROCODONE/ACETAMINOPHEN 5/325MG TABLET PO PRN (21:15)
[2018-05-03] VITALS: BP 151/80
[2018-05-03 04:00] VITALS: BP 144/56
[2018-05-03] MEDS: NITROFURANTOIN 100MG M/M CAPSULE PO SCH ×2 (05:34→18:00)
[2018-05-03] MEDS: HYDRALAZINE HCL 50MG TABLET PO SCH ×3 (05:35→21:29)
[2018-05-03] MEDS: INSULIN LISPRO 100 UNITS/ML SUBCUT SCH ×4 (07:50→21:00)
[2018-05-03] MEDS: BLOOD SUGAR DIAGNOSTIC STRIP TEST SCH ×4 (07:50→21:29)
[2018-05-03 08:00] VITALS: BP 164/66
[2018-05-03] MEDS: ENOXAPARIN 100MG/ML SYR SUBCUT SCH (09:00)
[2018-05-03] MEDS: LOSARTAN POTASSIUM 100 MG TABLET PO SCH (09:22)
[2018-05-03] MEDS: ASCORBIC ACID 500 MG TABLET PO SCH (09:22)
[2018-05-03] MEDS: FERROUS SULFATE 325MG TABLET PO SCH ×3 (09:22→18:00)
[2018-05-03] MEDS: MINOXIDIL 2.5MG TABLET PO SCH ×2 (09:23→21:28)
[2018-05-03] MEDS: ZINC SULFATE 220 MG ( 50 ) CAPSULE PO SCH (09:23)
[2018-05-03] MEDS: AMLODIPINE 5MG TABLET PO SCH (09:23)
[2018-05-03] MEDS: DEXT 5%/0.45% NACL 1000ML 1,000 ML IV SCH (09:27)
[2018-05-03 10:10] LABS: HEMATOCRIT 31.9 % (36.0-48.0); MEAN CORPUSCULAR HEMOGLOBIN 24.8 pg (28.0-32.0); MEAN CORPUSCULAR VOLUME 79.4 fL (81.0-99.0); PLATELET 271 x1000/uL (130-400); RED BLOOD CELL COUNT 4.02 mill/uL (4.2-5.4); RED CELL DISTRIBUTION WIDTH 18.2 % (11.6-14.6)
[2018-05-03 12:00] VITALS: BP 148/56
[2018-05-03 16:00] VITALS: BP 139/50
[2018-05-03 20:00] VITALS: BP 115/49
[2018-05-04] VITALS (8 sets, daily range): BP systolic 112–148; BP diastolic 50–76
[2018-05-04] MEDS: HYDRALAZINE HCL 50MG TABLET PO SCH ×4 (06:00→21:10)
[2018-05-04] MEDS: NITROFURANTOIN 100MG M/M CAPSULE PO SCH ×3 (06:00→18:18)
[2018-05-04] MEDS: DEXT 5%/0.45% NACL 1000ML 1,000 ML IV SCH (06:18)
[2018-05-04] MEDS: BLOOD SUGAR DIAGNOSTIC STRIP TEST SCH ×3 (06:27→21:16)
[2018-05-04 07:00] LABS: HEMATOCRIT 28.8 % (36.0-48.0); MEAN CORPUSCULAR HEMOGLOBIN 24.7 pg (28.0-32.0); MEAN CORPUSCULAR VOLUME 78.8 fL (81.0-99.0); PLATELET 256 x1000/uL (130-400); RED BLOOD CELL COUNT 3.65 mill/uL (4.2-5.4); RED CELL DISTRIBUTION WIDTH 17.9 % (11.6-14.6)
[2018-05-04] MEDS: FERROUS SULFATE 325MG TABLET PO SCH ×2 (07:50→16:53)
[2018-05-04] MEDS: INSULIN LISPRO 100 UNITS/ML SUBCUT SCH ×3 (07:50→21:00)
[2018-05-04] MEDS: ASCORBIC ACID 500 MG TABLET PO SCH (08:19)
[2018-05-04] MEDS: LOSARTAN POTASSIUM 100 MG TABLET PO SCH (08:19)
[2018-05-04] MEDS: MINOXIDIL 2.5MG TABLET PO SCH ×2 (08:19→21:07)
[2018-05-04] MEDS: ZINC SULFATE 220 MG ( 50 ) CAPSULE PO SCH (08:19)
[2018-05-04] MEDS: AMLODIPINE 5MG TABLET PO SCH (08:19)
[2018-05-04] MEDS ORDERED: LIDOCAINE HCL 1% 20ML VIAL (Pyxis) INJ ONE (11:20)
[2018-05-04] MEDS ORDERED: IODIXANOL 320MG/ML 100 ML BOTTLE IV ONE (11:20)
[2018-05-04] MEDS ORDERED: FENTANYL CITRATE/PF 50MCG/ML 2ML VIAL ONE (11:21)
[2018-05-04] MEDS ORDERED: MIDAZOLAM HCL 2 MG/2 ML VIAL ONE (11:21)
[2018-05-04] MEDS ORDERED: IOHEXOL-300 100 ML BOTTLE ONE (11:51)
[2018-05-04] MEDS: CLOPIDOGREL 75MG TABLET PO SCH (12:15)
[2018-05-04] MEDS ORDERED: HEPARIN SODIUM 1,000 UNIT/1ML VIAL IV ONE (15:21)
[2018-05-04 15:43] LABS: BG CARBOXYHEMOGLOBIN 0.4 % (0.5-1.5); BG DEOXYHEMOGLOBIN 2.7 % (0.0-5.0); BG HCO3 ACT 22.2 mmol/L (22.0-26.0); BG METHEMOGLOBIN 0.3 % (0.0-1.5); BG OXYGEN SATURATION 97.3 % (92.0-98.5); BG OXYHEMOGLOBIN 96.6 % (94.0-97.0); BG PCO2 35.9 mmHg (35.0-45.0); BG SAMPLE SITE RIGHT BRACHIAL; BG TOTAL HEMOGLOBIN 10.5 g/dL (12.0-18.0); BG VENT MODE ROOM AIR
[2018-05-04] MEDS ORDERED: ENOXAPARIN 80MG/0.8ML SYR SUBCUT SCH (21:00)
[2018-05-05] VITALS (13 sets, daily range): BP systolic 119–167; BP diastolic 34–72
[2018-05-05] MEDS: NITROFURANTOIN 100MG M/M CAPSULE PO SCH ×2 (06:04→17:06)
[2018-05-05] MEDS: BLOOD SUGAR DIAGNOSTIC STRIP TEST SCH ×4 (06:04→21:38)
[2018-05-05] MEDS: HYDRALAZINE HCL 50MG TABLET PO SCH ×3 (06:09→21:38)
[2018-05-05 06:51] LABS: EOSINOPHILS % 9.9 % (0.0-5.0); HEMOGLOBIN. 9.7 g/dL (12.0-16.0); LYMPHOCYTES % 38.8 % (20.0-50.0); MEAN CORPUSCULAR HEMOGLOBIN 25.1 pg (28.0-32.0); MEAN CORPUSCULAR VOLUME 79.8 fL (81.0-99.0); MEAN PLATELET VOLUME 8.1 fl (7.4-10.4); MONOCYTES % 9.3 % (2.0-8.0); PLATELET 233 x1000/uL (130-400); RED BLOOD CELL COUNT 3.88 mill/uL (4.2-5.4); RED CELL DISTRIBUTION WIDTH 18.4 % (11.6-14.6)
[2018-05-05] MEDS: INSULIN LISPRO 100 UNITS/ML SUBCUT SCH ×4 (07:20→21:00)
[2018-05-05] MEDS: ASCORBIC ACID 500 MG TABLET PO SCH (08:11)
[2018-05-05] MEDS: FERROUS SULFATE 325MG TABLET PO SCH ×3 (08:11→17:06)
[2018-05-05] MEDS: ZINC SULFATE 220 MG ( 50 ) CAPSULE PO SCH (08:11)
[2018-05-05] MEDS: LOSARTAN POTASSIUM 100 MG TABLET PO SCH (08:12)
[2018-05-05] MEDS: AMLODIPINE 5MG TABLET PO SCH (08:12)
[2018-05-05] MEDS: MINOXIDIL 2.5MG TABLET PO SCH ×2 (08:12→21:37)
[2018-05-05] MEDS: CLOPIDOGREL 75MG TABLET PO SCH (08:15)
[2018-05-06] VITALS (14 sets, daily range): BP systolic 101–164; BP diastolic 45–68
[2018-05-06] MEDS: HYDRALAZINE HCL 50MG TABLET PO SCH ×4 (05:52→23:24)
[2018-05-06] MEDS: NITROFURANTOIN 100MG M/M CAPSULE PO SCH (05:59)
[2018-05-06] MEDS: INSULIN LISPRO 100 UNITS/ML SUBCUT SCH ×4 (06:13→21:00)
[2018-05-06] MEDS: BLOOD SUGAR DIAGNOSTIC STRIP TEST SCH ×4 (06:13→21:00)
[2018-05-06] MEDS: FERROUS SULFATE 325MG TABLET PO SCH ×3 (06:41→17:52)
[2018-05-06] MEDS: ZINC SULFATE 220 MG ( 50 ) CAPSULE PO SCH (08:22)
[2018-05-06] MEDS: MINOXIDIL 2.5MG TABLET PO SCH ×2 (08:23→21:16)
[2018-05-06] MEDS: ASCORBIC ACID 500 MG TABLET PO SCH (08:23)
[2018-05-06] MEDS: AMLODIPINE 5MG TABLET PO SCH (08:23)
[2018-05-06] MEDS: LOSARTAN POTASSIUM 100 MG TABLET PO SCH (08:24)
[2018-05-06] MEDS: CLOPIDOGREL 75MG TABLET PO SCH (08:24)
[2018-05-06 09:35] LABS: BASOPHILS % 1.4 % (0.0-2.0); EOSINOPHILS % 8.5 % (0.0-5.0); HEMATOCRIT. 29.6 % (36.0-48.0); HEMOGLOBIN. 9.2 g/dL (12.0-16.0); MEAN CORPUSCULAR HEMOGLOBIN 24.6 pg (28.0-32.0); MEAN PLATELET VOLUME 8.1 fl (7.4-10.4); MONOCYTES % 10.6 % (2.0-8.0); NEUTROPHILS % 48.5 % (40.0-76.0); PLATELET 210 x1000/uL (130-400); RED BLOOD CELL COUNT 3.74 mill/uL (4.2-5.4); RED CELL DISTRIBUTION WIDTH 18.5 % (11.6-14.6)
[2018-05-07] VITALS (12 sets, daily range): BP systolic 90–126; BP diastolic 29–95
[2018-05-07] MEDS: BLOOD SUGAR DIAGNOSTIC STRIP TEST SCH ×3 (06:19→16:50)
[2018-05-07] MEDS: HYDRALAZINE HCL 50MG TABLET PO SCH ×2 (06:49→14:57)
[2018-05-07 07:00] LABS: BASOPHILS % 1.5 % (0.0-2.0); EOSINOPHILS % 9.7 % (0.0-5.0); HEMATOCRIT. 29.7 % (36.0-48.0); HEMOGLOBIN. 9.2 g/dL (12.0-16.0); LYMPHOCYTES % 37.6 % (20.0-50.0); MEAN CORPUSCULAR HEMOGLOBIN 24.6 pg (28.0-32.0); MEAN CORPUSCULAR VOLUME 79.1 fL (81.0-99.0); MEAN PLATELET VOLUME 8.1 fl (7.4-10.4); MONOCYTES % 9.7 % (2.0-8.0); NEUTROPHILS % 41.5 % (40.0-76.0); PLATELET 206 x1000/uL (130-400); RED BLOOD CELL COUNT 3.75 mill/uL (4.2-5.4); RED CELL DISTRIBUTION WIDTH 18.7 % (11.6-14.6)
[2018-05-07] MEDS: INSULIN LISPRO 100 UNITS/ML SUBCUT SCH ×3 (07:20→17:20)
[2018-05-07] MEDS: MINOXIDIL 2.5MG TABLET PO SCH (08:40)
[2018-05-07] MEDS: ASCORBIC ACID 500 MG TABLET PO SCH (08:41)
[2018-05-07] MEDS: CLOPIDOGREL 75MG TABLET PO SCH (08:41)
[2018-05-07] MEDS: LOSARTAN POTASSIUM 100 MG TABLET PO SCH (08:41)
[2018-05-07] MEDS: ZINC SULFATE 220 MG ( 50 ) CAPSULE PO SCH (08:41)
[2018-05-07] MEDS: AMLODIPINE 5MG TABLET PO SCH (08:41)
[2018-05-07] MEDS: FERROUS SULFATE 325MG TABLET PO SCH ×3 (08:41→17:56)
[2018-05-07] MEDS: METOCLOPRAMIDE HCL 5MG TABLET PO SCH ×2 (12:47→17:55)
== END 2018-05-07 21:11 | DRG 252 ==
LOC: ER 16:30 → 6EST 04-28 00:28 → CANRESERV 04-28 03:57 → ENRESERV 04-28 03:57 → 3WST 05-04 12:34
PROVIDERS: ADMIT Internal Medicine; ATTEND Internal Medicine
PROC: 05H533Z Insertion of Infusion Device into Right Subclavian Vein, Percutaneous Approach (ICD-10-PCS; 2018-05-02)
PROC: B516ZZA Fluoroscopy of Right Subclavian Vein, Guidance (ICD-10-PCS; 2018-05-02)
PROC: B546ZZA Ultrasonography of Right Subclavian Vein, Guidance (ICD-10-PCS; 2018-05-02)
PROC: 047L3ZZ Dilation of Left Femoral Artery, Percutaneous Approach (ICD-10-PCS; principal; 2018-05-04)
PROC: 047N3ZZ Dilation of Left Popliteal Artery, Percutaneous Approach (ICD-10-PCS; 2018-05-04)
PROC: 047U3ZZ Dilation of Left Peroneal Artery, Percutaneous Approach (ICD-10-PCS; 2018-05-04)
PROC: B41G1ZZ Fluoroscopy of Left Lower Extremity Arteries using Low Osmolar Contrast (ICD-10-PCS; 2018-05-04)
DX: I70.202 Unspecified atherosclerosis of native arteries of extremities, left leg (principal); I50.33 Acute on chronic diastolic (congestive) heart failure; N39.0 Urinary tract infection, site not specified; I31.3 Pericardial effusion (noninflammatory); I82.411 Acute embolism and thrombosis of right femoral vein; K56.7 Ileus, unspecified; N31.9 Neuromuscular dysfunction of bladder, unspecified; M19.90 Unspecified osteoarthritis, unspecified site; E86.0 Dehydration; L89.159 Pressure ulcer of sacral region, unspecified stage; E87.6 Hypokalemia; D50.9 Iron deficiency anemia, unspecified; I11.0 Hypertensive heart disease with heart failure; E11.51 Type 2 diabetes mellitus with diabetic peripheral angiopathy without gangrene; L97.509 Non-pressure chronic ulcer of other part of unspecified foot with unspecified severity; B96.1 Klebsiella pneumoniae [K. pneumoniae] as the cause of diseases classified elsewhere; B96.20 Unspecified Escherichia coli [E. coli] as the cause of diseases classified elsewhere; Z96.649 Presence of unspecified artificial hip joint; Z99.3 Dependence on wheelchair; Z74.01 Bed confinement status; Z79.4 Long term (current) use of insulin; Z88.0 Allergy status to penicillin; Z88.1 Allergy status to other antibiotic agents; Z79.82 Long term (current) use of aspirin; Z79.84 Long term (current) use of oral hypoglycemic drugs; Z79.899 Other long term (current) drug therapy; Z86.718 Personal history of other venous thrombosis and embolism; Z86.73 Personal history of transient ischemic attack (TIA), and cerebral infarction without residual deficits
CPT/HCPCS: 36415; 36569; 36600; 37224; 71045; 74018; 75710; 76937; 77001; 78582; 80048; 80061; 82375; 82550; 82553; 82805; 82962; 83036; 83540; 83550; 83735; 83880; 84439; 84443; 84484; 85027; 85379; 87077; 87186; 93005; 93306; 93923; 93970; 99285; A9558; C1725; C1760; C1769; C1887; C1893; C1894; J1644; J1650; J2250; J2405; J3010; J3490; J8597; Q9967

== ENCOUNTER 2018-07-04 04:26 | Emergency (ER) | payer MEDICARE ==
[~2018-07-04] VITALS: Ht 157.5 cm; Wt 73.0 kg
[2018-07-04 06:53] LABS: BASOPHILS % 1.1 % (0.0-2.0); EOSINOPHILS % 6.4 % (0.0-5.0); HEMATOCRIT. 32.4 % (36.0-48.0); HEMOGLOBIN. 10.4 g/dL (12.0-16.0); LYMPHOCYTES % 25.9 % (20.0-50.0); MEAN CORPUSCULAR HEMOGLOBIN 25.8 pg (28.0-32.0); MEAN CORPUSCULAR VOLUME 80.9 fL (81.0-99.0); MEAN PLATELET VOLUME 7.6 fl (7.4-10.4); MONOCYTES % 6.8 % (2.0-8.0); NEUTROPHILS % 59.8 % (40.0-76.0); PLATELET 252 x1000/uL (130-400); RED BLOOD CELL COUNT 4.01 mill/uL (4.2-5.4)
[2018-07-04 06:58] LABS: CHLORIDE 111 mEq/L (98-107)
[2018-07-04 07:00] LABS: INR 1.1; PROTHROMBIN TIME 11.4 sec (9.6-11.0)
[2018-07-04 07:52] LABS: CLARITY URINE CLEAR (CLEAR); COLOR URINE YELLOW (YELLOW); KETONES URINE TRACE (NEGATIVE); LEUKOCYTE ESTERASE URINE 2+ (NEGATIVE); NITRITE URINE POSITIVE (NEGATIVE); OCCULT BLOOD URINE 1+ (NEGATIVE); PH URINE 8.5 (4.5-8.0); PROTEIN URINE 1+ (NEGATIVE); SPECIFIC GRAVITY URINE 1.009 (1.005-1.030); UROBILINOGEN URINE 0.2 E.U./dL (0.2-1.0)
[2018-07-04] MEDS ORDERED: SULFAMETHOXAZOLE/TRIMETHOPRIM 800/160MG TABLET PO ONE (09:30)
[2018-07-04 11:13] VITALS: BP 148/83
== END 2018-07-04 11:44 | disposition home or self-care (01) ==
LOC: ER 04:26
DX: K59.00 Constipation, unspecified (principal); E11.9 Type 2 diabetes mellitus without complications; I10 Essential (primary) hypertension; Z88.1 Allergy status to other antibiotic agents; Z88.0 Allergy status to penicillin; Z86.73 Personal history of transient ischemic attack (TIA), and cerebral infarction without residual deficits
CPT/HCPCS: 36415; 71045; 74018; 87077; 87186; 93005; 99284

== ENCOUNTER 2018-08-24 03:00 | Emergency (ER) | payer MEDICARE ==
[~2018-08-24] VITALS: Ht 175.3 cm; Wt 90.0 kg
[2018-08-24 03:51] LABS: CHLORIDE 111 mEq/L (98-107)
[2018-08-24 03:54] LABS: EOSINOPHILS % 2.5 % (0.0-5.0); HEMATOCRIT. 37.2 % (36.0-48.0); LYMPHOCYTES % 16.6 % (20.0-50.0); MEAN CORPUSCULAR HEMOGLOBIN 25.1 pg (28.0-32.0); MEAN CORPUSCULAR VOLUME 77.5 fL (81.0-99.0); MEAN PLATELET VOLUME 7.7 fl (7.4-10.4); MONOCYTES % 6.6 % (2.0-8.0); NEUTROPHILS % 73.3 % (40.0-76.0); PLATELET 301 x1000/uL (130-400); RED BLOOD CELL COUNT 4.81 mill/uL (4.2-5.4); RED CELL DISTRIBUTION WIDTH 17.6 % (11.6-14.6)
[2018-08-24 05:15] LABS: CLARITY URINE CLOUDY (CLEAR); COLOR URINE YELLOW (YELLOW); KETONES URINE NEGATIVE (NEGATIVE); LEUKOCYTE ESTERASE URINE 1+ (NEGATIVE); NITRITE URINE NEGATIVE (NEGATIVE); OCCULT BLOOD URINE 1+ (NEGATIVE); PROTEIN URINE 2+ (NEGATIVE); SPECIFIC GRAVITY URINE 1.013 (1.005-1.030)
[2018-08-24 07:30] VITALS: BP 159/58
== END 2018-08-24 07:51 | disposition home or self-care (01) ==
LOC: ER 03:13 → CANBEDREQ 07:40 → ER 07:51
DX: R10.30 Lower abdominal pain, unspecified (principal); F41.9 Anxiety disorder, unspecified; E11.9 Type 2 diabetes mellitus without complications; I10 Essential (primary) hypertension; Z96.642 Presence of left artificial hip joint; Z88.0 Allergy status to penicillin; Z88.1 Allergy status to other antibiotic agents
CPT/HCPCS: 36415; 51702; 74176; 82962; 83605; 99284

== ENCOUNTER 2018-09-13 19:25 | Inpatient (IN) | payer MEDICARE ==
[~2018-09-13] VITALS: Ht 175.3 cm; Wt 88.5 kg
[2018-09-13] MEDS ORDERED: CLINDAMYCIN 900 MG in DEXTROSE 5% WATER 50 ML IV ONE (20:45)
[2018-09-13 21:07] LABS: EOSINOPHILS % 7.5 % (0.0-5.0); HEMATOCRIT. 32.1 % (36.0-48.0); HEMOGLOBIN. 10.2 g/dL (12.0-16.0); LYMPHOCYTES % 19.9 % (20.0-50.0); MEAN CORPUSCULAR HEMOGLOBIN 24.5 pg (28.0-32.0); MEAN CORPUSCULAR VOLUME 77.1 fL (81.0-99.0); MEAN PLATELET VOLUME 7.3 fl (7.4-10.4); MONOCYTES % 9.1 % (2.0-8.0); NEUTROPHILS % 62.5 % (40.0-76.0); PLATELET 228 x1000/uL (130-400); RED BLOOD CELL COUNT 4.16 mill/uL (4.2-5.4); RED CELL DISTRIBUTION WIDTH 18.1 % (11.6-14.6)
[2018-09-13 21:10] LABS: CHLORIDE 112 mEq/L (98-107)
[2018-09-13 22:11] LABS: CLARITY URINE CLOUDY (CLEAR); COLOR URINE YELLOW (YELLOW); KETONES URINE NEGATIVE (NEGATIVE); LEUKOCYTE ESTERASE URINE 2+ (NEGATIVE); NITRITE URINE POSITIVE (NEGATIVE); OCCULT BLOOD URINE NEGATIVE (NEGATIVE); PH URINE 5.5 (4.5-8.0); PROTEIN URINE 2+ (NEGATIVE); SPECIFIC GRAVITY URINE 1.018 (1.005-1.030)
[2018-09-13] MEDS ORDERED: SODIUM CHLORIDE 0.9% 500 ML IV ONE (22:30)
[2018-09-13] MEDS ORDERED: POTASSIUM CHLORIDE 20MEQ TABLET SR PO SCH (22:30)
[2018-09-13] MEDS ORDERED: CEFTRIAXONE 1 G PREMIX 50 ML IV ONE (22:45)
[2018-09-14] VITALS (8 sets, daily range): BP systolic 144–166; BP diastolic 48–60
[2018-09-14] MEDS ORDERED: MORPHINE SULFATE 2 MG/ML CPJ (NOT FOR IM USE) IV PRN (04:15)
[2018-09-14] MEDS ORDERED: DEXTROSE 50% WATER 50ML SYRINGE IV PRN (04:15)
[2018-09-14] MEDS ORDERED: ACETAMINOPHEN 325MG TABLET PO PRN (04:15)
[2018-09-14] MEDS: PANTOPRAZOLE 40MG DR TABLET PO SCH (06:52)
[2018-09-14] MEDS: CLONIDINE 0.1MG TABLET PO PRN (06:53)
[2018-09-14] MEDS: BLOOD SUGAR DIAGNOSTIC STRIP TEST SCH ×4 (07:20→21:14)
[2018-09-14] MEDS: INSULIN LISPRO 100 UNITS/ML SUBCUT SCH ×4 (07:50→21:00)
[2018-09-14] MEDS ORDERED: VANCOMYCIN 1250MG in DEXTROSE 5% WATER 250ML IV NR (08:00)
[2018-09-14] MEDS: ENOXAPARIN 40MG/0.4ML SYR SUBCUT SCH (08:34)
[2018-09-14] MEDS ORDERED: CEFAZOLIN 1000MG PREMIX 50 ML IV SCH (09:00)
[2018-09-14] MEDS: VANCOMYCIN 750 MG PREMIX 150 ML IV SCH (22:13)
[2018-09-15] VITALS: BP 172/69
[2018-09-15] MEDS: CLONIDINE 0.1MG TABLET PO PRN ×3 (00:44→23:50)
[2018-09-15 04:00] VITALS: BP 169/62
[2018-09-15] MEDS: PANTOPRAZOLE 40MG DR TABLET PO SCH (05:42)
[2018-09-15] MEDS: BLOOD SUGAR DIAGNOSTIC STRIP TEST SCH ×4 (06:23→21:00)
[2018-09-15] MEDS: INSULIN LISPRO 100 UNITS/ML SUBCUT SCH ×4 (06:23→21:00)
[2018-09-15 08:00] VITALS: BP 174/55
[2018-09-15 08:00] LABS: CHLORIDE 112 mEq/L (98-107); HEMATOCRIT 29.3 % (36.0-48.0); HEMOGLOBIN 9.3 g/dL (12.0-16.0); MEAN CORPUSCULAR HEMOGLOBIN 24.2 pg (28.0-32.0); MEAN CORPUSCULAR VOLUME 76.5 fL (81.0-99.0); PLATELET 223 x1000/uL (130-400); RED BLOOD CELL COUNT 3.83 mill/uL (4.2-5.4); RED CELL DISTRIBUTION WIDTH 18.6 % (11.6-14.6)
[2018-09-15] MEDS: ENOXAPARIN 40MG/0.4ML SYR SUBCUT SCH (09:13)
[2018-09-15] MEDS: AMLODIPINE 5MG TABLET PO SCH ×2 (11:10→11:14)
[2018-09-15 11:41] VITALS: BP 167/46
[2018-09-15] MEDS ORDERED: ONDANSETRON HCL 4MG/2ML INJ IV PRN (13:30)
[2018-09-15] MEDS ORDERED: DOCUSATE SODIUM 100MG CAPSULE PO PRN (13:30)
[2018-09-15] MEDS ORDERED: LORAZEPAM 2MG/ML CPJ IV PRN (13:30)
[2018-09-15] MEDS: AZTREONAM 1 G in DEXTROSE 5% WATER 50 ML IV SCH (15:17)
[2018-09-15] MEDS: HYDRALAZINE HCL 50MG TABLET PO SCH ×2 (15:17→21:00)
[2018-09-15 15:41] VITALS: BP 159/64
[2018-09-15] MEDS: VANCOMYCIN 750 MG PREMIX 150 ML IV SCH (16:52)
[2018-09-15 20:00] VITALS: BP 161/79
[2018-09-16] VITALS (10 sets, daily range): BP systolic 133–206; BP diastolic 54–124
[2018-09-16] MEDS: AZTREONAM 1 G in DEXTROSE 5% WATER 50 ML IV SCH ×2 (01:48→16:31)
[2018-09-16] MEDS: HYDRALAZINE HCL 50MG TABLET PO SCH ×3 (05:40→21:21)
[2018-09-16] MEDS: BLOOD SUGAR DIAGNOSTIC STRIP TEST SCH ×4 (06:29→21:21)
[2018-09-16] MEDS: PANTOPRAZOLE 40MG DR TABLET PO SCH (06:29)
[2018-09-16 07:11] LABS: HEMATOCRIT 29.9 % (36.0-48.0); HEMOGLOBIN 9.5 g/dL (12.0-16.0); MEAN CORPUSCULAR HEMOGLOBIN 24.5 pg (28.0-32.0); MEAN CORPUSCULAR VOLUME 76.6 fL (81.0-99.0); PLATELET 231 x1000/uL (130-400); RED CELL DISTRIBUTION WIDTH 18.4 % (11.6-14.6)
[2018-09-16 07:19] LABS: CHLORIDE 112 mEq/L (98-107)
[2018-09-16] MEDS: INSULIN LISPRO 100 UNITS/ML SUBCUT SCH ×4 (07:50→21:00)
[2018-09-16] MEDS: ENOXAPARIN 40MG/0.4ML SYR SUBCUT SCH (09:37)
[2018-09-16] MEDS: VANCOMYCIN 750 MG PREMIX 150 ML IV SCH (11:14)
[2018-09-16] MEDS: CLONIDINE 0.1MG TABLET PO PRN ×2 (16:31→22:43)
[2018-09-16] MEDS ORDERED: DOCUSATE SODIUM 100MG CAPSULE PO SCH (21:00)
[2018-09-16] MEDS ORDERED: BISACODYL 10MG SUPP PR PRN (21:00)
[2018-09-17] VITALS (28 sets, daily range): BP systolic 89–185; BP diastolic 42–74
[2018-09-17] MEDS: HYDRALAZINE 20MG/ML VIAL IV PRN ×2 (02:02→13:31)
[2018-09-17] MEDS: AZTREONAM 1 G in DEXTROSE 5% WATER 50 ML IV SCH ×2 (03:00→13:52)
[2018-09-17] MEDS: VANCOMYCIN 750 MG PREMIX 150 ML IV SCH ×2 (04:41→23:56)
[2018-09-17] MEDS: HYDRALAZINE HCL 50MG TABLET PO SCH ×3 (06:29→22:00)
[2018-09-17] MEDS: PANTOPRAZOLE 40MG DR TABLET PO SCH (06:29)
[2018-09-17 06:38] LABS: BASOPHILS % 1.1 % (0.0-2.0); EOSINOPHILS % 8.6 % (0.0-5.0); HEMATOCRIT. 30.2 % (36.0-48.0); HEMOGLOBIN. 9.7 g/dL (12.0-16.0); LYMPHOCYTES % 30.3 % (20.0-50.0); MEAN CORPUSCULAR HEMOGLOBIN 24.5 pg (28.0-32.0); MEAN CORPUSCULAR VOLUME 76.7 fL (81.0-99.0); MONOCYTES % 7.6 % (2.0-8.0); NEUTROPHILS % 52.4 % (40.0-76.0); PLATELET 221 x1000/uL (130-400); RED BLOOD CELL COUNT 3.94 mill/uL (4.2-5.4); RED CELL DISTRIBUTION WIDTH 18.4 % (11.6-14.6)
[2018-09-17 07:07] LABS: D-DIMER 2.17 mg/L FEU (<0.50); PROTHROMBIN TIME 10.7 sec (9.6-11.0)
[2018-09-17] MEDS: INSULIN LISPRO 100 UNITS/ML SUBCUT SCH ×5 (07:20→21:00)
[2018-09-17 07:23] LABS: CHLORIDE 110 mEq/L (98-107)
[2018-09-17] MEDS: BLOOD SUGAR DIAGNOSTIC STRIP TEST SCH ×4 (07:26→21:00)
[2018-09-17 07:46] LABS: CREATINE KINASE 39 IU/L (26-192); LDL CHOLESTEROL 78 mg/dL (5-100)
[2018-09-17 07:47] LABS: CREATINE KINASE MB FRACTION 1.4 ng/mL (0.5-3.6); HDL CHOLESTEROL 26 mg/dL (40-59)
[2018-09-17] MEDS: ENOXAPARIN 40MG/0.4ML SYR SUBCUT SCH (07:56)
[2018-09-17] MEDS: AMLODIPINE 5MG TABLET PO SCH (09:21)
[2018-09-17] MEDS ORDERED: EPINEPHRINE 4 MG in DEXT 5% WATER 246 ML IV SCH (10:00)
[2018-09-17] MEDS ORDERED: NOREPINEPHRINE 4 MG in DEXT 5% WATER 246 ML IV SCH (10:00)
[2018-09-17] MEDS ORDERED: BACITRACIN 50,000 UNITS/VIAL ONE (14:38)
[2018-09-17] MEDS ORDERED: BUPIVACAINE/EPINEPH/PF 0.25%/0.0005 10ML ONE (14:38)
[2018-09-17] MEDS ORDERED: SKIN ADHESIVE 0.7 GM EA TOP ONE (14:38)
[2018-09-17] MEDS ORDERED: CLINDAMYCIN 900 MG PREMIX 50 ML IV ONE (17:27)
[2018-09-17] MEDS ORDERED: PROPOFOL 200MG/20ML VIAL IV ONE (17:34)
[2018-09-17] MEDS ORDERED: MIDAZOLAM HCL 2 MG/2 ML VIAL ONE (17:35)
[2018-09-17] MEDS ORDERED: FENTANYL CITRATE/PF 50MCG/ML 2ML VIAL ONE (17:35)
[2018-09-17] MEDS ORDERED: DIPHENHYDRAMINE 50MG/ML VIAL ONE (17:35)
[2018-09-17] MEDS ORDERED: LIDOCAINE HCL/PF 1% 10 MG/ML 5ML VIAL ONE (17:41)
[2018-09-17] MEDS ORDERED: NEOSTIGMINE METHYLSULFATE 1MG/ML 10 ML VIAL ONE (18:49)
[2018-09-17] MEDS ORDERED: ONDANSETRON HCL 4MG/2ML INJ ONE (18:51)
[2018-09-17] MEDS ORDERED: METOCLOPRAMIDE HCL 10MG/2ML VIAL ONE (18:51)
[2018-09-17] MEDS ORDERED: FENTANYL CITRATE/PF 50MCG/ML 5ML VIAL ONE (19:04)
[2018-09-17] MEDS ORDERED: BACITRACIN 15GM TUBE TOP ONE (19:08)
[2018-09-17] MEDS ORDERED: SODIUM CHLORIDE 0.9% 500 ML IV PRN (19:31)
[2018-09-17] MEDS ORDERED: OXYCODONE HCL/ACETAMINOPHEN 5/325MG TABLET PO PRN ×2 (19:45)
[2018-09-17] MEDS ORDERED: ONDANSETRON HCL 4MG/2ML INJ IV PRN (19:45)
[2018-09-17] MEDS ORDERED: ACETAMINOPHEN 325MG TABLET PO PRN (19:45)
[2018-09-17] MEDS ORDERED: MAGNESIUM 2 G PREMIX 50 ML IV PRN (19:45)
[2018-09-17] MEDS ORDERED: MAGNESIUM 1 G PREMIX 100 ML IV PRN (19:45)
[2018-09-17] MEDS: MAGNESIUM HYDROXIDE 400MG/5ML 30ML UDC PO SCH (20:00)
[2018-09-17 20:34] LABS: BG BASE EXCESS -1.9 mmol/L (-2.0-2.0); BG CARBOXYHEMOGLOBIN 0.3 % (0.5-1.5); BG DEOXYHEMOGLOBIN 0.6 % (0.0-5.0); BG FRACTION INSPIRED OXYGEN 60; BG HCO3 ACT 22.8 mmol/L (22.0-26.0); BG METHEMOGLOBIN 0.6 % (0.0-1.5); BG OXYGEN SATURATION 99.4 % (92.0-98.5); BG OXYHEMOGLOBIN 98.5 % (94.0-97.0); BG PCO2 38.3 mmHg (35.0-45.0); BG PH 7.392 (7.350-7.450); BG PO2 303.1 mmHg (75.0-100.0); BG SAMPLE SITE A-LINE; BG TOTAL HEMOGLOBIN 10.5 g/dL (12.0-18.0); BG VENT MODE MASK - SIMPLE
[2018-09-17] MEDS: DEXT 5%/0.45% NACL 1000ML 1,000 ML IV SCH (20:35)
[2018-09-17] MEDS: IPRATROPIUM/ALBUTEROL 0.5-3(2.5)MG/3ML NEB HHN SCH (20:35)
[2018-09-17] MEDS: MORPHINE SULFATE 2 MG/ML CPJ (NOT FOR IM USE) IV PRN (21:16)
[2018-09-18] VITALS (32 sets, daily range): BP systolic 122–166; BP diastolic 43–91
[2018-09-18] MEDS: HYDRALAZINE 20MG/ML VIAL IV PRN (00:30)
[2018-09-18] MEDS: IPRATROPIUM/ALBUTEROL 0.5-3(2.5)MG/3ML NEB HHN SCH ×6 (00:36→20:35)
[2018-09-18] MEDS: AZTREONAM 1 G in DEXTROSE 5% WATER 50 ML IV SCH ×2 (01:53→13:57)
[2018-09-18] MEDS: MAGNESIUM SULFATE 3 GM in DEXT 5% WATER 94 ML IV PRN ×2 (02:23→09:34)
[2018-09-18] MEDS: MAGNESIUM HYDROXIDE 400MG/5ML 30ML UDC PO SCH ×7 (04:00→23:53)
[2018-09-18] MEDS: HYDRALAZINE HCL 50MG TABLET PO SCH ×3 (05:15→22:11)
[2018-09-18 05:49] LABS: BASOPHILS % 0.3 % (0.0-2.0); EOSINOPHILS % 0.2 % (0.0-5.0); HEMATOCRIT. 31.3 % (36.0-48.0); LYMPHOCYTES % 9.7 % (20.0-50.0); MEAN CORPUSCULAR HEMOGLOBIN 24.4 pg (28.0-32.0); MEAN CORPUSCULAR VOLUME 76.1 fL (81.0-99.0); MEAN PLATELET VOLUME 8.3 fl (7.4-10.4); MONOCYTES % 5.5 % (2.0-8.0); NEUTROPHILS % 84.3 % (40.0-76.0); PLATELET 232 x1000/uL (130-400); RED BLOOD CELL COUNT 4.12 mill/uL (4.2-5.4); RED CELL DISTRIBUTION WIDTH 18.6 % (11.6-14.6)
[2018-09-18 06:01] LABS: CHLORIDE 109 mEq/L (98-107)
[2018-09-18] MEDS ORDERED: KCL 10MEQ/50ML PREMIX 150 ML IV PRN (06:30)
[2018-09-18] MEDS ORDERED: KCL 10MEQ/50ML PREMIX 200 ML IV PRN (06:30)
[2018-09-18] MEDS: BLOOD SUGAR DIAGNOSTIC STRIP TEST SCH ×3 (08:03→20:42)
[2018-09-18] MEDS: DOCUSATE SODIUM 100MG CAPSULE PO SCH ×2 (08:39→17:43)
[2018-09-18] MEDS: AMLODIPINE 5MG TABLET PO SCH (08:39)
[2018-09-18] MEDS: INSULIN LISPRO 100 UNITS/ML SUBCUT SCH ×4 (08:41→21:00)
[2018-09-18] MEDS: FAMOTIDINE 20MG/2ML VIAL IV SCH (08:47)
[2018-09-18] MEDS: KCL 10MEQ/50ML PREMIX 100 ML IV PRN ×2 (09:34→10:50)
[2018-09-18] MEDS: DEXT 5%/0.45% NACL 1000ML 1,000 ML IV SCH (13:13)
[2018-09-18] MEDS: ENOXAPARIN 40MG/0.4ML SYR SUBCUT SCH (13:57)
[2018-09-18] MEDS: VANCOMYCIN 750 MG PREMIX 150 ML IV SCH (15:51)
[2018-09-18] MEDS ORDERED: POTASSIUM CHLORIDE INJ 40 MEQ in DEXT 5% WATER 250 ML IV NR (20:00)
[2018-09-18] MEDS: ACETAMINOPHEN 325MG TABLET PO PRN (21:01)
[2018-09-19] VITALS (13 sets, daily range): BP systolic 99–163; BP diastolic 30–104
[2018-09-19] MEDS: IPRATROPIUM/ALBUTEROL 0.5-3(2.5)MG/3ML NEB HHN SCH ×4 (00:48→20:40)
[2018-09-19] MEDS: AZTREONAM 1 G in DEXTROSE 5% WATER 50 ML IV SCH ×2 (02:26→15:28)
[2018-09-19] MEDS: MAGNESIUM HYDROXIDE 400MG/5ML 30ML UDC PO SCH ×5 (04:00→20:30)
[2018-09-19] MEDS: DEXT 5%/0.45% NACL 1000ML 1,000 ML IV SCH ×2 (04:51→21:52)
[2018-09-19] MEDS ORDERED: NYSTATIN POWDER 15GM TOP SCH (06:00)
[2018-09-19] MEDS: BLOOD SUGAR DIAGNOSTIC STRIP TEST SCH ×4 (06:04→21:42)
[2018-09-19] MEDS: HYDRALAZINE HCL 50MG TABLET PO SCH ×3 (06:04→21:51)
[2018-09-19 06:16] LABS: BASOPHILS % 0.4 % (0.0-2.0); CHLORIDE 107 mEq/L (98-107); EOSINOPHILS % 0.5 % (0.0-5.0); HEMATOCRIT. 27.7 % (36.0-48.0); HEMOGLOBIN. 8.7 g/dL (12.0-16.0); LYMPHOCYTES % 15.1 % (20.0-50.0); MEAN CORPUSCULAR HEMOGLOBIN 24.1 pg (28.0-32.0); MEAN CORPUSCULAR VOLUME 76.4 fL (81.0-99.0); MEAN PLATELET VOLUME 8.1 fl (7.4-10.4); MONOCYTES % 8.4 % (2.0-8.0); NEUTROPHILS % 75.6 % (40.0-76.0); PLATELET 200 x1000/uL (130-400); RED BLOOD CELL COUNT 3.62 mill/uL (4.2-5.4); RED CELL DISTRIBUTION WIDTH 18.9 % (11.6-14.6)
[2018-09-19] MEDS: INSULIN LISPRO 100 UNITS/ML SUBCUT SCH ×4 (07:20→21:00)
[2018-09-19] MEDS: AMLODIPINE 5MG TABLET PO SCH (08:38)
[2018-09-19] MEDS: FAMOTIDINE 20MG/2ML VIAL IV SCH (08:38)
[2018-09-19] MEDS: ENOXAPARIN 40MG/0.4ML SYR SUBCUT SCH (08:39)
[2018-09-19] MEDS: DOCUSATE SODIUM 100MG CAPSULE PO SCH ×2 (08:39→18:33)
[2018-09-19] MEDS: NYSTATIN POWDER 15GM TOP SCH ×2 (08:39→21:45)
[2018-09-19] MEDS: VANCOMYCIN 750 MG PREMIX 150 ML IV SCH (11:17)
[2018-09-19] MEDS ORDERED: LORAZEPAM 2MG/ML CPJ IV PRN (21:30)
[2018-09-20] VITALS (12 sets, daily range): BP systolic 114–169; BP diastolic 38–93
[2018-09-20] MEDS: IPRATROPIUM/ALBUTEROL 0.5-3(2.5)MG/3ML NEB HHN SCH ×5 (00:20→20:04)
[2018-09-20] MEDS: MAGNESIUM HYDROXIDE 400MG/5ML 30ML UDC PO SCH ×5 (00:48→11:05)
[2018-09-20] MEDS: AZTREONAM 1 G in DEXTROSE 5% WATER 50 ML IV SCH ×2 (02:47→14:27)
[2018-09-20] MEDS: VANCOMYCIN 750 MG PREMIX 150 ML IV SCH (04:31)
[2018-09-20] MEDS: MORPHINE SULFATE 2 MG/ML CPJ (NOT FOR IM USE) IV PRN (04:52)
[2018-09-20] MEDS: ACETAMINOPHEN 325MG TABLET PO PRN (05:17)
[2018-09-20] MEDS: HYDRALAZINE HCL 50MG TABLET PO SCH ×3 (06:23→21:48)
[2018-09-20] MEDS: BLOOD SUGAR DIAGNOSTIC STRIP TEST SCH ×5 (06:27→21:59)
[2018-09-20 06:31] LABS: BASOPHILS % 0.9 % (0.0-2.0); EOSINOPHILS % 5.6 % (0.0-5.0); HEMATOCRIT. 27.8 % (36.0-48.0); HEMOGLOBIN. 9.1 g/dL (12.0-16.0); LYMPHOCYTES % 26.7 % (20.0-50.0); MEAN CORPUSCULAR HEMOGLOBIN 24.9 pg (28.0-32.0); MEAN CORPUSCULAR VOLUME 75.9 fL (81.0-99.0); MONOCYTES % 11.7 % (2.0-8.0); NEUTROPHILS % 55.1 % (40.0-76.0); PLATELET 236 x1000/uL (130-400); RED BLOOD CELL COUNT 3.66 mill/uL (4.2-5.4); RED CELL DISTRIBUTION WIDTH 19.1 % (11.6-14.6)
[2018-09-20] MEDS: INSULIN LISPRO 100 UNITS/ML SUBCUT SCH ×4 (07:20→21:00)
[2018-09-20] MEDS: FAMOTIDINE 20MG/2ML VIAL IV SCH (08:02)
[2018-09-20] MEDS: NYSTATIN POWDER 15GM TOP SCH ×2 (08:02→21:49)
[2018-09-20] MEDS: DOCUSATE SODIUM 100MG CAPSULE PO SCH ×2 (08:02→16:24)
[2018-09-20] MEDS: AMLODIPINE 5MG TABLET PO SCH (08:02)
[2018-09-20] MEDS: ENOXAPARIN 40MG/0.4ML SYR SUBCUT SCH (09:37)
[2018-09-20 13:54] LABS: CHLORIDE 106 mEq/L (98-107)
[2018-09-20] MEDS: DEXT 5%/0.45% NACL 1000ML 1,000 ML IV SCH (15:07)
[2018-09-20] MEDS: ASCORBIC ACID 250 MG TABLET PO SCH (21:48)
[2018-09-21] VITALS (12 sets, daily range): BP systolic 120–164; BP diastolic 50–82
[2018-09-21] MEDS: IPRATROPIUM/ALBUTEROL 0.5-3(2.5)MG/3ML NEB HHN SCH ×6 (00:21→20:22)
[2018-09-21] MEDS: AZTREONAM 1 G in DEXTROSE 5% WATER 50 ML IV SCH ×2 (02:50→14:02)
[2018-09-21] MEDS: HYDRALAZINE HCL 50MG TABLET PO SCH ×3 (06:18→22:04)
[2018-09-21] MEDS: DEXT 5%/0.45% NACL 1000ML 1,000 ML IV SCH ×2 (06:19→23:31)
[2018-09-21] MEDS: BLOOD SUGAR DIAGNOSTIC STRIP TEST SCH ×4 (06:25→21:00)
[2018-09-21 06:42] LABS: CHLORIDE 109 mEq/L (98-107)
[2018-09-21] MEDS: INSULIN LISPRO 100 UNITS/ML SUBCUT SCH ×4 (07:20→21:00)
[2018-09-21] MEDS: MULTIVITAMINS,THER W-MINERALS TABLET PO SCH (08:12)
[2018-09-21] MEDS: ZINC SULFATE 220 MG ( 50 ) CAPSULE PO SCH (08:12)
[2018-09-21] MEDS: ASCORBIC ACID 250 MG TABLET PO SCH ×2 (08:12→22:04)
[2018-09-21] MEDS: FAMOTIDINE 20MG/2ML VIAL IV SCH (08:13)
[2018-09-21] MEDS: AMLODIPINE 5MG TABLET PO SCH ×2 (08:13→22:04)
[2018-09-21] MEDS: DOCUSATE SODIUM 100MG CAPSULE PO SCH ×2 (08:16→16:55)
[2018-09-21] MEDS: ENOXAPARIN 40MG/0.4ML SYR SUBCUT SCH (08:17)
[2018-09-21] MEDS: NYSTATIN POWDER 15GM TOP SCH ×2 (08:18→21:00)
[2018-09-21] MEDS ORDERED: VANCOMYCIN 1 G PREMIX 200 ML IV SCH (09:00)
[2018-09-22] VITALS (12 sets, daily range): BP systolic 127–174; BP diastolic 53–130
[2018-09-22] MEDS: IPRATROPIUM/ALBUTEROL 0.5-3(2.5)MG/3ML NEB HHN SCH ×6 (00:25→21:28)
[2018-09-22] MEDS: AZTREONAM 1 G in DEXTROSE 5% WATER 50 ML IV SCH ×2 (02:38→14:41)
[2018-09-22] MEDS: BLOOD SUGAR DIAGNOSTIC STRIP TEST SCH ×4 (06:09→20:24)
[2018-09-22] MEDS: INSULIN LISPRO 100 UNITS/ML SUBCUT SCH ×4 (06:09→20:25)
[2018-09-22] MEDS: HYDRALAZINE HCL 50MG TABLET PO SCH ×3 (06:25→21:04)
[2018-09-22 08:08] LABS: HEMATOCRIT 24.5 % (36.0-48.0); HEMOGLOBIN 7.9 g/dL (12.0-16.0); MEAN CORPUSCULAR HEMOGLOBIN 24.7 pg (28.0-32.0); MEAN CORPUSCULAR VOLUME 76.7 fL (81.0-99.0); PLATELET 236 x1000/uL (130-400); RED BLOOD CELL COUNT 3.19 mill/uL (4.2-5.4); RED CELL DISTRIBUTION WIDTH 19.4 % (11.6-14.6)
[2018-09-22 08:32] LABS: CHLORIDE 110 mEq/L (98-107)
[2018-09-22] MEDS: MULTIVITAMINS,THER W-MINERALS TABLET PO SCH (09:08)
[2018-09-22] MEDS: ENOXAPARIN 40MG/0.4ML SYR SUBCUT SCH (09:08)
[2018-09-22] MEDS: FAMOTIDINE 20MG/2ML VIAL IV SCH (09:08)
[2018-09-22] MEDS: ASCORBIC ACID 250 MG TABLET PO SCH ×2 (09:08→21:03)
[2018-09-22] MEDS: ZINC SULFATE 220 MG ( 50 ) CAPSULE PO SCH (09:08)
[2018-09-22] MEDS: AMLODIPINE 5MG TABLET PO SCH ×2 (09:09→21:04)
[2018-09-22] MEDS: DOCUSATE SODIUM 100MG CAPSULE PO SCH ×2 (09:09→17:00)
[2018-09-22] MEDS: NYSTATIN POWDER 15GM TOP SCH ×2 (09:20→21:04)
[2018-09-22] MEDS: DEXT 5%/0.45% NACL 1000ML 1,000 ML IV SCH (16:11)
[2018-09-22] MEDS: DIPHENHYDRAMINE 50MG/ML VIAL IV PRN (21:03)
[2018-09-23] VITALS (18 sets, daily range): BP systolic 127–168; BP diastolic 54–95
[2018-09-23] MEDS: IPRATROPIUM/ALBUTEROL 0.5-3(2.5)MG/3ML NEB HHN SCH ×6 (00:59→20:55)
[2018-09-23] MEDS: HYDRALAZINE HCL 50MG TABLET PO SCH ×3 (05:22→21:40)
[2018-09-23] MEDS: BLOOD SUGAR DIAGNOSTIC STRIP TEST SCH ×4 (06:33→20:22)
[2018-09-23] MEDS: INSULIN LISPRO 100 UNITS/ML SUBCUT SCH ×4 (06:40→21:43)
[2018-09-23 07:09] LABS: HEMATOCRIT 22.5 % (36.0-48.0); HEMOGLOBIN 7.2 g/dL (12.0-16.0); MEAN CORPUSCULAR HEMOGLOBIN 24.7 pg (28.0-32.0); MEAN CORPUSCULAR VOLUME 77.1 fL (81.0-99.0); PLATELET 218 x1000/uL (130-400); RED BLOOD CELL COUNT 2.91 mill/uL (4.2-5.4)
[2018-09-23 07:14] LABS: CHLORIDE 111 mEq/L (98-107)
[2018-09-23] MEDS: DEXT 5%/0.45% NACL 1000ML 1,000 ML IV SCH (08:54)
[2018-09-23] MEDS: ENOXAPARIN 40MG/0.4ML SYR SUBCUT SCH (08:55)
[2018-09-23] MEDS: ZINC SULFATE 220 MG ( 50 ) CAPSULE PO SCH (08:55)
[2018-09-23] MEDS: AMLODIPINE 5MG TABLET PO SCH ×2 (08:55→21:40)
[2018-09-23] MEDS: ASCORBIC ACID 250 MG TABLET PO SCH ×2 (08:55→21:40)
[2018-09-23] MEDS: MULTIVITAMINS,THER W-MINERALS TABLET PO SCH (08:55)
[2018-09-23] MEDS: FAMOTIDINE 20MG/2ML VIAL IV SCH (08:55)
[2018-09-23] MEDS: DOCUSATE SODIUM 100MG CAPSULE PO SCH ×3 (08:55→16:29)
[2018-09-23] MEDS: NYSTATIN POWDER 15GM TOP SCH ×2 (08:56→21:41)
[2018-09-23] MEDS: DIPHENHYDRAMINE 50MG/ML VIAL IV PRN (21:41)
[2018-09-23 21:48] LABS: HEMATOCRIT 27.4 % (36.0-48.0); HEMOGLOBIN 8.9 g/dL (12.0-16.0)
[2018-09-23 21:56] LABS: PROTHROMBIN TIME 10.7 sec (9.6-11.0)
[2018-09-24] VITALS (11 sets, daily range): BP systolic 137–165; BP diastolic 52–96
[2018-09-24] MEDS: IPRATROPIUM/ALBUTEROL 0.5-3(2.5)MG/3ML NEB HHN SCH ×6 (00:33→21:25)
[2018-09-24] MEDS: CLONIDINE 0.1MG TABLET PO PRN ×2 (00:59→18:04)
[2018-09-24] MEDS: DEXT 5%/0.45% NACL 1000ML 1,000 ML IV SCH ×2 (01:31→05:23)
[2018-09-24] MEDS: HYDRALAZINE HCL 50MG TABLET PO SCH ×3 (05:21→22:45)
[2018-09-24] MEDS: DIPHENHYDRAMINE 50MG/ML VIAL IV PRN ×2 (05:35→18:05)
[2018-09-24] MEDS: BLOOD SUGAR DIAGNOSTIC STRIP TEST SCH ×4 (06:54→21:00)
[2018-09-24] MEDS: INSULIN LISPRO 100 UNITS/ML SUBCUT SCH ×4 (06:55→21:00)
[2018-09-24 07:02] LABS: HEMATOCRIT 26.4 % (36.0-48.0); HEMOGLOBIN 8.5 g/dL (12.0-16.0); MEAN CORPUSCULAR HEMOGLOBIN 25.6 pg (28.0-32.0); MEAN CORPUSCULAR VOLUME 79.3 fL (81.0-99.0); PLATELET 241 x1000/uL (130-400); RED BLOOD CELL COUNT 3.32 mill/uL (4.2-5.4); RED CELL DISTRIBUTION WIDTH 21.1 % (11.6-14.6)
[2018-09-24 08:13] LABS: CHLORIDE 112 mEq/L (98-107)
[2018-09-24] MEDS: ZINC SULFATE 220 MG ( 50 ) CAPSULE PO SCH (08:36)
[2018-09-24] MEDS: MULTIVITAMINS,THER W-MINERALS TABLET PO SCH (08:36)
[2018-09-24] MEDS: ASCORBIC ACID 250 MG TABLET PO SCH ×2 (08:37→22:45)
[2018-09-24] MEDS: ENOXAPARIN 40MG/0.4ML SYR SUBCUT SCH (08:37)
[2018-09-24] MEDS: AMLODIPINE 5MG TABLET PO SCH ×2 (08:37→22:46)
[2018-09-24] MEDS: FAMOTIDINE 20MG/2ML VIAL IV SCH (08:37)
[2018-09-24] MEDS: DOCUSATE SODIUM 100MG CAPSULE PO SCH ×2 (08:38→17:00)
[2018-09-24 12:26] LABS: TOTAL IRON BINDING CAPACITY 92 ug/dL (250-450)
[2018-09-24] MEDS: NYSTATIN POWDER 15GM TOP SCH ×2 (16:15→22:46)
[2018-09-25] VITALS: BP 170/65
[2018-09-25] MEDS: IPRATROPIUM/ALBUTEROL 0.5-3(2.5)MG/3ML NEB HHN SCH ×6 (01:10→20:33)
[2018-09-25 04:00] VITALS: BP 148/95
[2018-09-25] MEDS: BLOOD SUGAR DIAGNOSTIC STRIP TEST SCH ×4 (06:38→21:25)
[2018-09-25] MEDS: INSULIN LISPRO 100 UNITS/ML SUBCUT SCH ×4 (06:38→21:00)
[2018-09-25] MEDS: HYDRALAZINE HCL 50MG TABLET PO SCH ×3 (06:40→21:24)
[2018-09-25 08:00] VITALS: BP 139/60
[2018-09-25] MEDS: AMLODIPINE 5MG TABLET PO SCH ×2 (09:18→21:24)
[2018-09-25] MEDS: FAMOTIDINE 20MG/2ML VIAL IV SCH (09:18)
[2018-09-25] MEDS: ZINC SULFATE 220 MG ( 50 ) CAPSULE PO SCH (09:19)
[2018-09-25] MEDS: ENOXAPARIN 40MG/0.4ML SYR SUBCUT SCH (09:19)
[2018-09-25] MEDS: ASCORBIC ACID 250 MG TABLET PO SCH ×2 (09:19→21:24)
[2018-09-25] MEDS: DOCUSATE SODIUM 100MG CAPSULE PO SCH ×2 (09:19→16:48)
[2018-09-25] MEDS: NYSTATIN POWDER 15GM TOP SCH ×2 (09:20→21:24)
[2018-09-25] MEDS: MULTIVITAMINS,THER W-MINERALS TABLET PO SCH (09:22)
[2018-09-25 11:48] LABS: BASOPHILS % 0.9 % (0.0-2.0); EOSINOPHILS % 8.5 % (0.0-5.0); HEMATOCRIT. 27.7 % (36.0-48.0); HEMOGLOBIN. 8.9 g/dL (12.0-16.0); LYMPHOCYTES % 19.4 % (20.0-50.0); MEAN CORPUSCULAR HEMOGLOBIN 25.9 pg (28.0-32.0); MEAN CORPUSCULAR VOLUME 80.2 fL (81.0-99.0); MEAN PLATELET VOLUME 7.7 fl (7.4-10.4); MONOCYTES % 6.8 % (2.0-8.0); NEUTROPHILS % 64.4 % (40.0-76.0); PLATELET 251 x1000/uL (130-400); RED BLOOD CELL COUNT 3.46 mill/uL (4.2-5.4); RED CELL DISTRIBUTION WIDTH 21.3 % (11.6-14.6)
[2018-09-25 11:50] LABS: CHLORIDE 112 mEq/L (98-107)
[2018-09-25 12:00] VITALS: BP 138/52
[2018-09-25] MEDS ORDERED: MAGNESIUM 2 G PREMIX 50 ML IV ONE (13:00)
[2018-09-25 16:00] VITALS: BP 161/62
[2018-09-25] MEDS: CLONIDINE 0.1MG TABLET PO PRN (17:15)
[2018-09-25 20:00] VITALS: BP 151/66
[2018-09-26] VITALS (8 sets, daily range): BP systolic 108–175; BP diastolic 59–84
[2018-09-26] MEDS: CLONIDINE 0.1MG TABLET PO PRN (00:36)
[2018-09-26] MEDS: IPRATROPIUM/ALBUTEROL 0.5-3(2.5)MG/3ML NEB HHN SCH ×6 (00:49→21:37)
[2018-09-26] MEDS: INSULIN LISPRO 100 UNITS/ML SUBCUT SCH ×4 (06:39→21:00)
[2018-09-26] MEDS: BLOOD SUGAR DIAGNOSTIC STRIP TEST SCH ×4 (06:39→21:00)
[2018-09-26] MEDS: HYDRALAZINE HCL 50MG TABLET PO SCH ×3 (06:43→22:14)
[2018-09-26 07:54] LABS: CHLORIDE 113 mEq/L (98-107)
[2018-09-26 07:59] LABS: HEMATOCRIT 26.3 % (36.0-48.0); HEMOGLOBIN 8.5 g/dL (12.0-16.0); MEAN CORPUSCULAR VOLUME 80.4 fL (81.0-99.0); PLATELET 286 x1000/uL (130-400); RED BLOOD CELL COUNT 3.27 mill/uL (4.2-5.4); RED CELL DISTRIBUTION WIDTH 22.1 % (11.6-14.6)
[2018-09-26] MEDS: ENOXAPARIN 40MG/0.4ML SYR SUBCUT SCH (09:01)
[2018-09-26] MEDS: ZINC SULFATE 220 MG ( 50 ) CAPSULE PO SCH (09:02)
[2018-09-26] MEDS: DOCUSATE SODIUM 100MG CAPSULE PO SCH ×2 (09:02→17:52)
[2018-09-26] MEDS: FAMOTIDINE 20MG TABLET PO SCH (09:02)
[2018-09-26] MEDS: AMLODIPINE 5MG TABLET PO SCH ×2 (09:02→22:00)
[2018-09-26] MEDS: ASCORBIC ACID 250 MG TABLET PO SCH ×2 (09:02→22:00)
[2018-09-26] MEDS: NYSTATIN POWDER 15GM TOP SCH ×2 (09:03→22:05)
[2018-09-26] MEDS: MULTIVITAMINS,THER W-MINERALS TABLET PO SCH (09:05)
[2018-09-26] MEDS: DIPHENHYDRAMINE 50MG/ML VIAL IV PRN (13:40)
[2018-09-26] MEDS ORDERED: ASPI81TA47 MT (23:35)
[2018-09-27] VITALS: BP 154/61
[2018-09-27] MEDS: IPRATROPIUM/ALBUTEROL 0.5-3(2.5)MG/3ML NEB HHN SCH ×7 (00:52→23:52)
[2018-09-27 04:00] VITALS: BP 169/57
[2018-09-27] MEDS: HYDRALAZINE HCL 50MG TABLET PO SCH ×4 (06:05→22:00)
[2018-09-27] MEDS: BLOOD SUGAR DIAGNOSTIC STRIP TEST SCH ×4 (06:08→21:31)
[2018-09-27] MEDS: INSULIN LISPRO 100 UNITS/ML SUBCUT SCH ×4 (06:12→21:00)
[2018-09-27 06:34] LABS: HEMATOCRIT 26.6 % (36.0-48.0); HEMOGLOBIN 8.5 g/dL (12.0-16.0); MEAN CORPUSCULAR HEMOGLOBIN 25.7 pg (28.0-32.0); MEAN CORPUSCULAR VOLUME 80.5 fL (81.0-99.0); PLATELET 303 x1000/uL (130-400); RED BLOOD CELL COUNT 3.31 mill/uL (4.2-5.4); RED CELL DISTRIBUTION WIDTH 22.2 % (11.6-14.6)
[2018-09-27 06:43] LABS: CHLORIDE 114 mEq/L (98-107)
[2018-09-27 08:00] VITALS: BP 162/66
[2018-09-27] MEDS: ASCORBIC ACID 250 MG TABLET PO SCH ×2 (08:19→21:25)
[2018-09-27] MEDS: MULTIVITAMINS,THER W-MINERALS TABLET PO SCH (08:19)
[2018-09-27] MEDS: AMLODIPINE 5MG TABLET PO SCH ×2 (08:19→21:00)
[2018-09-27] MEDS: ZINC SULFATE 220 MG ( 50 ) CAPSULE PO SCH (08:19)
[2018-09-27] MEDS: FAMOTIDINE 20MG TABLET PO SCH (08:19)
[2018-09-27] MEDS: ENOXAPARIN 40MG/0.4ML SYR SUBCUT SCH (08:19)
[2018-09-27] MEDS: DOCUSATE SODIUM 100MG CAPSULE PO SCH ×2 (08:20→16:13)
[2018-09-27] MEDS: NYSTATIN POWDER 15GM TOP SCH ×2 (08:20→21:42)
[2018-09-27 11:20] VITALS: BP 155/58
[2018-09-27] MEDS: CLONIDINE 0.1MG TABLET PO SCH ×2 (13:45→21:00)
[2018-09-27 16:03] VITALS: BP 157/58
[2018-09-27 18:37] LABS: CLARITY URINE CLEAR (CLEAR); COLOR URINE YELLOW (YELLOW); KETONES URINE NEGATIVE (NEGATIVE); LEUKOCYTE ESTERASE URINE 1+ (NEGATIVE); NITRITE URINE NEGATIVE (NEGATIVE); OCCULT BLOOD URINE NEGATIVE (NEGATIVE); PROTEIN URINE 1+ (NEGATIVE); SPECIFIC GRAVITY URINE 1.013 (1.005-1.030); UROBILINOGEN URINE 0.2 E.U./dL (0.2-1.0)
[2018-09-27 20:00] VITALS: BP 120/63
[2018-09-27] MEDS: DIPHENHYDRAMINE 50MG/ML VIAL IV PRN (21:42)
[2018-09-28] VITALS (9 sets, daily range): BP systolic 114–175; BP diastolic 50–68
[2018-09-28] MEDS: CLONIDINE 0.1MG TABLET PO PRN (00:59)
[2018-09-28] MEDS: IPRATROPIUM/ALBUTEROL 0.5-3(2.5)MG/3ML NEB HHN SCH ×5 (04:18→19:58)
[2018-09-28] MEDS: HYDRALAZINE HCL 50MG TABLET PO SCH ×3 (06:18→22:00)
[2018-09-28] MEDS: BLOOD SUGAR DIAGNOSTIC STRIP TEST SCH ×4 (06:22→20:51)
[2018-09-28] MEDS: INSULIN LISPRO 100 UNITS/ML SUBCUT SCH ×4 (06:26→20:51)
[2018-09-28 06:33] LABS: HEMATOCRIT 27.8 % (36.0-48.0); HEMOGLOBIN 8.9 g/dL (12.0-16.0); MEAN CORPUSCULAR HEMOGLOBIN 25.9 pg (28.0-32.0); PLATELET 314 x1000/uL (130-400); RED BLOOD CELL COUNT 3.44 mill/uL (4.2-5.4); RED CELL DISTRIBUTION WIDTH 22.4 % (11.6-14.6)
[2018-09-28 06:41] LABS: CHLORIDE 118 mEq/L (98-107)
[2018-09-28] MEDS: CLONIDINE 0.1MG TABLET PO SCH (08:56)
[2018-09-28] MEDS: MULTIVITAMINS,THER W-MINERALS TABLET PO SCH (08:56)
[2018-09-28] MEDS: AMLODIPINE 5MG TABLET PO SCH ×2 (08:56→20:50)
[2018-09-28] MEDS: FAMOTIDINE 20MG TABLET PO SCH (08:56)
[2018-09-28] MEDS: ENOXAPARIN 40MG/0.4ML SYR SUBCUT SCH (08:56)
[2018-09-28] MEDS: ZINC SULFATE 220 MG ( 50 ) CAPSULE PO SCH (08:56)
[2018-09-28] MEDS: NYSTATIN POWDER 15GM TOP SCH ×2 (08:56→20:51)
[2018-09-28] MEDS: ASCORBIC ACID 250 MG TABLET PO SCH ×2 (08:56→20:50)
[2018-09-28] MEDS: DOCUSATE SODIUM 100MG CAPSULE PO SCH ×2 (08:58→16:19)
[2018-09-28] MEDS: DEXTROSE 5% WATER 1,000 ML IV SCH (15:37)
[2018-09-28] MEDS: CLONIDINE 0.2MG TABLET PO SCH (20:50)
[2018-09-29] VITALS (10 sets, daily range): BP systolic 127–176; BP diastolic 50–72
[2018-09-29] MEDS: IPRATROPIUM/ALBUTEROL 0.5-3(2.5)MG/3ML NEB HHN SCH ×6 (00:30→20:40)
[2018-09-29] MEDS: HYDRALAZINE 20MG/ML VIAL IV PRN (01:55)
[2018-09-29] MEDS: HYDRALAZINE HCL 50MG TABLET PO SCH ×3 (05:32→21:08)
[2018-09-29] MEDS: BLOOD SUGAR DIAGNOSTIC STRIP TEST SCH ×4 (07:11→20:58)
[2018-09-29] MEDS: INSULIN LISPRO 100 UNITS/ML SUBCUT SCH ×4 (07:12→21:11)
[2018-09-29] MEDS: FAMOTIDINE 20MG TABLET PO SCH (08:45)
[2018-09-29] MEDS: ASCORBIC ACID 250 MG TABLET PO SCH ×2 (08:46→21:08)
[2018-09-29] MEDS: AMLODIPINE 5MG TABLET PO SCH ×2 (08:46→21:08)
[2018-09-29] MEDS: ZINC SULFATE 220 MG ( 50 ) CAPSULE PO SCH (08:46)
[2018-09-29] MEDS: MULTIVITAMINS,THER W-MINERALS TABLET PO SCH (08:46)
[2018-09-29] MEDS: DOCUSATE SODIUM 100MG CAPSULE PO SCH ×2 (08:47→17:39)
[2018-09-29] MEDS: NYSTATIN POWDER 15GM TOP SCH ×2 (08:49→21:10)
[2018-09-29] MEDS: ENOXAPARIN 40MG/0.4ML SYR SUBCUT SCH (08:49)
[2018-09-29] MEDS: CLONIDINE 0.2MG TABLET PO SCH ×2 (08:53→21:09)
[2018-09-29] MEDS: DIPHENHYDRAMINE 50MG/ML VIAL IV PRN ×2 (08:58→21:20)
[2018-09-29 09:44] LABS: BASOPHILS % 1.1 % (0.0-2.0); EOSINOPHILS % 6.1 % (0.0-5.0); HEMATOCRIT. 29.8 % (36.0-48.0); HEMOGLOBIN. 9.5 g/dL (12.0-16.0); LYMPHOCYTES % 21.4 % (20.0-50.0); MEAN CORPUSCULAR HEMOGLOBIN 25.9 pg (28.0-32.0); MEAN CORPUSCULAR VOLUME 81.2 fL (81.0-99.0); MONOCYTES % 7.2 % (2.0-8.0); NEUTROPHILS % 64.2 % (40.0-76.0); PLATELET 200 x1000/uL (130-400); RED BLOOD CELL COUNT 3.67 mill/uL (4.2-5.4); RED CELL DISTRIBUTION WIDTH 21.9 % (11.6-14.6)
[2018-09-29 09:55] LABS: CHLORIDE 112 mEq/L (98-107)
[2018-09-29] MEDS: DEXTROSE 5% WATER 1,000 ML IV SCH ×2 (10:45→17:45)
[2018-09-29] MEDS: CLONIDINE 0.1MG TABLET PO PRN (11:37)
[2018-09-29] MEDS: ACETAMINOPHEN 325MG TABLET PO PRN (12:21)
[2018-09-30] VITALS: BP 142/80
[2018-09-30] MEDS: IPRATROPIUM/ALBUTEROL 0.5-3(2.5)MG/3ML NEB HHN SCH ×6 (01:36→20:55)
[2018-09-30 04:00] VITALS: BP 146/55
[2018-09-30] MEDS: HYDRALAZINE HCL 50MG TABLET PO SCH ×3 (06:20→21:40)
[2018-09-30] MEDS: INSULIN LISPRO 100 UNITS/ML SUBCUT SCH ×4 (06:20→21:00)
[2018-09-30] MEDS: BLOOD SUGAR DIAGNOSTIC STRIP TEST SCH ×4 (06:20→21:27)
[2018-09-30 08:00] VITALS: BP 136/62
[2018-09-30] MEDS: CLONIDINE 0.2MG TABLET PO SCH ×2 (09:00→21:41)
[2018-09-30] MEDS: DOCUSATE SODIUM 100MG CAPSULE PO SCH ×2 (09:14→17:52)
[2018-09-30] MEDS: FAMOTIDINE 20MG TABLET PO SCH (09:14)
[2018-09-30] MEDS: CLONIDINE 0.1MG TABLET PO PRN (09:15)
[2018-09-30] MEDS: MULTIVITAMINS,THER W-MINERALS TABLET PO SCH (09:15)
[2018-09-30] MEDS: ZINC SULFATE 220 MG ( 50 ) CAPSULE PO SCH (09:15)
[2018-09-30] MEDS: AMLODIPINE 5MG TABLET PO SCH ×2 (09:15→21:41)
[2018-09-30] MEDS: ASCORBIC ACID 250 MG TABLET PO SCH ×2 (09:22→21:41)
[2018-09-30] MEDS: ENOXAPARIN 40MG/0.4ML SYR SUBCUT SCH (09:22)
[2018-09-30] MEDS: DIPHENHYDRAMINE 50MG/ML VIAL IV PRN (09:22)
[2018-09-30] MEDS: LOSARTAN POTASSIUM 25 MG TABLET PO SCH (09:22)
[2018-09-30 12:00] VITALS: BP 129/73
[2018-09-30 16:00] VITALS: BP 136/66
[2018-09-30] MEDS: FLUCONAZOLE 200 MG/100ML BAG 100 ML IV SCH (16:20)
[2018-09-30] MEDS: NYSTATIN POWDER 15GM TOP SCH ×2 (16:20→21:41)
[2018-09-30 20:00] VITALS: BP 151/53
[2018-10-01] VITALS: BP 156/61
[2018-10-01] MEDS: IPRATROPIUM/ALBUTEROL 0.5-3(2.5)MG/3ML NEB HHN SCH ×6 (00:52→20:15)
[2018-10-01 04:00] VITALS: BP 145/53
[2018-10-01] MEDS: DIPHENHYDRAMINE 50MG/ML VIAL IV PRN ×2 (04:01→14:02)
[2018-10-01] MEDS: BLOOD SUGAR DIAGNOSTIC STRIP TEST SCH ×4 (06:26→21:44)
[2018-10-01] MEDS: INSULIN LISPRO 100 UNITS/ML SUBCUT SCH ×4 (06:26→21:00)
[2018-10-01] MEDS: HYDRALAZINE HCL 50MG TABLET PO SCH ×3 (06:30→21:44)
[2018-10-01 08:00] VITALS: BP 156/62
[2018-10-01] MEDS: CLONIDINE 0.2MG TABLET PO SCH ×2 (09:05→21:50)
[2018-10-01] MEDS: ZINC SULFATE 220 MG ( 50 ) CAPSULE PO SCH (09:05)
[2018-10-01] MEDS: FAMOTIDINE 20MG TABLET PO SCH (09:05)
[2018-10-01] MEDS: ASCORBIC ACID 250 MG TABLET PO SCH ×2 (09:05→21:43)
[2018-10-01] MEDS: AMLODIPINE 5MG TABLET PO SCH ×2 (09:05→21:43)
[2018-10-01] MEDS: LOSARTAN POTASSIUM 25 MG TABLET PO SCH (09:05)
[2018-10-01] MEDS: DOCUSATE SODIUM 100MG CAPSULE PO SCH ×2 (09:06→16:57)
[2018-10-01] MEDS: ENOXAPARIN 40MG/0.4ML SYR SUBCUT SCH (09:06)
[2018-10-01] MEDS: NYSTATIN POWDER 15GM TOP SCH ×2 (09:07→21:44)
[2018-10-01] MEDS: MULTIVITAMINS,THER W-MINERALS TABLET PO SCH (09:10)
[2018-10-01 12:03] VITALS: BP 119/56
[2018-10-01] MEDS: FLUCONAZOLE 200 MG/100ML BAG 100 ML IV SCH (15:02)
[2018-10-01 16:27] VITALS: BP 108/57
[2018-10-01 20:00] VITALS: BP 155/59
[2018-10-01] MEDS: CLONIDINE 0.1MG TABLET PO PRN (21:44)
[2018-10-02] VITALS: BP 154/57
[2018-10-02] MEDS: IPRATROPIUM/ALBUTEROL 0.5-3(2.5)MG/3ML NEB HHN SCH ×6 (00:07→20:21)
[2018-10-02 04:00] VITALS: BP 159/60
[2018-10-02] MEDS: INSULIN LISPRO 100 UNITS/ML SUBCUT SCH ×4 (06:09→21:38)
[2018-10-02] MEDS: BLOOD SUGAR DIAGNOSTIC STRIP TEST SCH ×4 (06:10→21:10)
[2018-10-02] MEDS: HYDRALAZINE HCL 50MG TABLET PO SCH ×3 (06:52→22:19)
[2018-10-02 08:00] VITALS: BP 153/48
[2018-10-02] MEDS: AMLODIPINE 5MG TABLET PO SCH ×2 (08:51→21:09)
[2018-10-02] MEDS: ENOXAPARIN 40MG/0.4ML SYR SUBCUT SCH (08:51)
[2018-10-02] MEDS: ZINC SULFATE 220 MG ( 50 ) CAPSULE PO SCH (08:51)
[2018-10-02] MEDS: FAMOTIDINE 20MG TABLET PO SCH (08:52)
[2018-10-02] MEDS: DOCUSATE SODIUM 100MG CAPSULE PO SCH ×2 (08:52→17:29)
[2018-10-02] MEDS: MULTIVITAMINS,THER W-MINERALS TABLET PO SCH (08:52)
[2018-10-02] MEDS: LOSARTAN POTASSIUM 25 MG TABLET PO SCH ×2 (08:52→21:10)
[2018-10-02] MEDS: ASCORBIC ACID 250 MG TABLET PO SCH ×2 (08:52→21:09)
[2018-10-02] MEDS: CLONIDINE 0.2MG TABLET PO SCH ×2 (08:52→21:09)
[2018-10-02] MEDS: NYSTATIN POWDER 15GM TOP SCH ×2 (08:53→21:09)
[2018-10-02 12:00] VITALS: BP 153/66
[2018-10-02] MEDS: FLUCONAZOLE 200 MG/100ML BAG 100 ML IV SCH (15:06)
[2018-10-02 15:23] VITALS: BP 157/67
[2018-10-02 20:00] VITALS: BP 153/56
[2018-10-03] VITALS: BP 128/65
[2018-10-03] MEDS: IPRATROPIUM/ALBUTEROL 0.5-3(2.5)MG/3ML NEB HHN SCH ×3 (00:07→21:14)
[2018-10-03 04:00] VITALS: BP 160/67
[2018-10-03 07:06] LABS: BASOPHILS % 0.9 % (0.0-2.0); EOSINOPHILS % 7.2 % (0.0-5.0); HEMATOCRIT. 28.6 % (36.0-48.0); HEMOGLOBIN. 9.2 g/dL (12.0-16.0); LYMPHOCYTES % 27.5 % (20.0-50.0); MEAN CORPUSCULAR VOLUME 80.4 fL (81.0-99.0); MEAN PLATELET VOLUME 7.6 fl (7.4-10.4); MONOCYTES % 6.7 % (2.0-8.0); NEUTROPHILS % 57.7 % (40.0-76.0); PLATELET 334 x1000/uL (130-400); RED BLOOD CELL COUNT 3.56 mill/uL (4.2-5.4); RED CELL DISTRIBUTION WIDTH 22.5 % (11.6-14.6)
[2018-10-03] MEDS: INSULIN LISPRO 100 UNITS/ML SUBCUT SCH ×4 (07:18→20:57)
[2018-10-03] MEDS: BLOOD SUGAR DIAGNOSTIC STRIP TEST SCH ×4 (07:18→20:57)
[2018-10-03 07:25] LABS: CHLORIDE 112 mEq/L (98-107)
[2018-10-03] MEDS: HYDRALAZINE HCL 50MG TABLET PO SCH ×2 (07:37→16:12)
[2018-10-03 08:00] VITALS: BP 156/56
[2018-10-03] MEDS: ENOXAPARIN 40MG/0.4ML SYR SUBCUT SCH (09:49)
[2018-10-03] MEDS: DOCUSATE SODIUM 100MG CAPSULE PO SCH ×2 (09:50→17:52)
[2018-10-03] MEDS: MULTIVITAMINS,THER W-MINERALS TABLET PO SCH (09:50)
[2018-10-03] MEDS: ASCORBIC ACID 250 MG TABLET PO SCH ×2 (09:50→21:10)
[2018-10-03] MEDS: AMLODIPINE 5MG TABLET PO SCH ×2 (09:50→21:11)
[2018-10-03] MEDS: ZINC SULFATE 220 MG ( 50 ) CAPSULE PO SCH (09:50)
[2018-10-03] MEDS: FAMOTIDINE 20MG TABLET PO SCH (09:50)
[2018-10-03] MEDS: LOSARTAN POTASSIUM 25 MG TABLET PO SCH (09:51)
[2018-10-03] MEDS: CLONIDINE 0.2MG TABLET PO SCH ×2 (09:51→21:11)
[2018-10-03] MEDS: NYSTATIN POWDER 15GM TOP SCH (10:08)
[2018-10-03 10:38] LABS: PLATELET ESTIMATE NORMAL
[2018-10-03 12:43] VITALS: BP 146/59
[2018-10-03] MEDS: FLUCONAZOLE 200 MG/100ML BAG 100 ML IV SCH (16:12)
[2018-10-03 16:14] VITALS: BP 129/57
[2018-10-03] MEDS: DIPHENHYDRAMINE 50MG/ML VIAL IV PRN (17:52)
[2018-10-03 20:00] VITALS: BP 142/60
[2018-10-03] MEDS: LOSARTAN POTASSIUM 50 MG TABLET PO SCH (21:11)
[2018-10-04] VITALS (7 sets, daily range): BP systolic 114–165; BP diastolic 54–64
[2018-10-04] MEDS: HYDRALAZINE HCL 50MG TABLET PO SCH ×4 (00:04→22:07)
[2018-10-04] MEDS: IPRATROPIUM/ALBUTEROL 0.5-3(2.5)MG/3ML NEB HHN SCH ×6 (00:50→20:45)
[2018-10-04] MEDS: INSULIN LISPRO 100 UNITS/ML SUBCUT SCH ×4 (05:48→20:49)
[2018-10-04] MEDS: BLOOD SUGAR DIAGNOSTIC STRIP TEST SCH ×4 (05:48→20:46)
[2018-10-04] MEDS: ENOXAPARIN 40MG/0.4ML SYR SUBCUT SCH (09:23)
[2018-10-04] MEDS: CLONIDINE 0.1MG TABLET PO PRN ×4 (09:23→09:30)
[2018-10-04] MEDS: ZINC SULFATE 220 MG ( 50 ) CAPSULE PO SCH (09:24)
[2018-10-04] MEDS: AMLODIPINE 5MG TABLET PO SCH (09:24)
[2018-10-04] MEDS: MULTIVITAMINS,THER W-MINERALS TABLET PO SCH (09:24)
[2018-10-04] MEDS: FAMOTIDINE 20MG TABLET PO SCH (09:24)
[2018-10-04] MEDS: ASCORBIC ACID 250 MG TABLET PO SCH ×2 (09:25→20:47)
[2018-10-04] MEDS: DOCUSATE SODIUM 100MG CAPSULE PO SCH ×2 (09:25→17:42)
[2018-10-04] MEDS: LOSARTAN POTASSIUM 50 MG TABLET PO SCH ×2 (09:25→20:56)
[2018-10-04] MEDS: CLONIDINE 0.2MG TABLET PO SCH ×3 (09:27→20:48)
[2018-10-04] MEDS: DIPHENHYDRAMINE 50MG/ML VIAL IV PRN (09:59)
[2018-10-04] MEDS ORDERED: LACTULOSE 20G/30ML UDC PO NR (13:00)
[2018-10-04] MEDS: FLUCONAZOLE 200 MG/100ML BAG 100 ML IV SCH (15:15)
[2018-10-04] MEDS: AMLODIPINE 10MG TABLET PO SCH (20:48)
[2018-10-05] VITALS: BP 138/61
[2018-10-05] MEDS: IPRATROPIUM/ALBUTEROL 0.5-3(2.5)MG/3ML NEB HHN SCH ×6 (00:47→20:20)
[2018-10-05 04:00] VITALS: BP 147/46
[2018-10-05] MEDS: BLOOD SUGAR DIAGNOSTIC STRIP TEST SCH ×4 (05:09→20:35)
[2018-10-05] MEDS: INSULIN LISPRO 100 UNITS/ML SUBCUT SCH ×4 (05:34→22:10)
[2018-10-05] MEDS: HYDRALAZINE HCL 50MG TABLET PO SCH ×3 (05:41→22:05)
[2018-10-05 08:00] VITALS: BP 140/59
[2018-10-05] MEDS: DOCUSATE SODIUM 100MG CAPSULE PO SCH ×2 (09:00→17:00)
[2018-10-05] MEDS: FLUCONAZOLE 100MG TABLET PO SCH (09:54)
[2018-10-05] MEDS: AMLODIPINE 10MG TABLET PO SCH ×2 (09:55→22:05)
[2018-10-05] MEDS: LOSARTAN POTASSIUM 50 MG TABLET PO SCH ×2 (09:55→22:05)
[2018-10-05] MEDS: ZINC SULFATE 220 MG ( 50 ) CAPSULE PO SCH (09:55)
[2018-10-05] MEDS: MULTIVITAMINS,THER W-MINERALS TABLET PO SCH (09:55)
[2018-10-05] MEDS: FAMOTIDINE 20MG TABLET PO SCH (09:55)
[2018-10-05] MEDS: ASCORBIC ACID 250 MG TABLET PO SCH ×2 (09:56→22:05)
[2018-10-05] MEDS: ENOXAPARIN 40MG/0.4ML SYR SUBCUT SCH (09:56)
[2018-10-05] MEDS: CLONIDINE 0.2MG TABLET PO SCH ×2 (10:02→22:04)
[2018-10-05] MEDS: DIPHENHYDRAMINE 50MG/ML VIAL IV PRN ×2 (10:11→10:24)
[2018-10-05 12:00] VITALS: BP 130/50
[2018-10-05 16:00] VITALS: BP 141/54
[2018-10-05 20:00] VITALS: BP 152/58
[2018-10-06] VITALS: BP 151/65
[2018-10-06] MEDS: IPRATROPIUM/ALBUTEROL 0.5-3(2.5)MG/3ML NEB HHN SCH ×6 (00:41→20:04)
[2018-10-06 04:00] VITALS: BP 147/54
[2018-10-06] MEDS: BLOOD SUGAR DIAGNOSTIC STRIP TEST SCH ×4 (06:20→20:57)
[2018-10-06] MEDS: HYDRALAZINE HCL 50MG TABLET PO SCH ×3 (06:22→21:04)
[2018-10-06] MEDS: INSULIN LISPRO 100 UNITS/ML SUBCUT SCH ×4 (06:23→21:00)
[2018-10-06 08:00] VITALS: BP 123/52
[2018-10-06] MEDS: DOCUSATE SODIUM 100MG CAPSULE PO SCH ×2 (09:00→17:00)
[2018-10-06] MEDS: AMLODIPINE 10MG TABLET PO SCH ×2 (09:00→21:05)
[2018-10-06] MEDS: LOSARTAN POTASSIUM 50 MG TABLET PO SCH ×2 (09:00→21:04)
[2018-10-06] MEDS: CLONIDINE 0.2MG TABLET PO SCH ×2 (09:00→21:00)
[2018-10-06] MEDS: FLUCONAZOLE 100MG TABLET PO SCH (09:16)
[2018-10-06] MEDS: ASCORBIC ACID 250 MG TABLET PO SCH ×2 (09:16→21:03)
[2018-10-06] MEDS: ZINC SULFATE 220 MG ( 50 ) CAPSULE PO SCH (09:16)
[2018-10-06] MEDS: MULTIVITAMINS,THER W-MINERALS TABLET PO SCH (09:17)
[2018-10-06] MEDS: FAMOTIDINE 20MG TABLET PO SCH (09:17)
[2018-10-06] MEDS: ENOXAPARIN 40MG/0.4ML SYR SUBCUT SCH (09:18)
[2018-10-06 11:58] VITALS: BP 136/49
[2018-10-06 16:00] VITALS: BP 115/54
[2018-10-06] MEDS: ACETAMINOPHEN 325MG TABLET PO PRN (19:30)
[2018-10-06 20:00] VITALS: BP 143/60
[2018-10-06] MEDS: DIPHENHYDRAMINE 50MG/ML VIAL IV PRN (21:09)
[2018-10-07] VITALS (7 sets, daily range): BP systolic 133–151; BP diastolic 49–60
[2018-10-07] MEDS: IPRATROPIUM/ALBUTEROL 0.5-3(2.5)MG/3ML NEB HHN SCH ×5 (00:57→16:32)
[2018-10-07] MEDS: BLOOD SUGAR DIAGNOSTIC STRIP TEST SCH ×3 (05:39→21:43)
[2018-10-07] MEDS: HYDRALAZINE HCL 50MG TABLET PO SCH ×3 (05:42→22:35)
[2018-10-07] MEDS: INSULIN LISPRO 100 UNITS/ML SUBCUT SCH ×3 (05:43→21:00)
[2018-10-07] MEDS: FAMOTIDINE 20MG TABLET PO SCH (09:39)
[2018-10-07] MEDS: MULTIVITAMINS,THER W-MINERALS TABLET PO SCH (09:39)
[2018-10-07] MEDS: FLUCONAZOLE 100MG TABLET PO SCH (09:39)
[2018-10-07] MEDS: ZINC SULFATE 220 MG ( 50 ) CAPSULE PO SCH (09:39)
[2018-10-07] MEDS: ASCORBIC ACID 250 MG TABLET PO SCH ×2 (09:39→21:52)
[2018-10-07] MEDS: ACETAMINOPHEN 325MG TABLET PO PRN (09:40)
[2018-10-07] MEDS: LOSARTAN POTASSIUM 50 MG TABLET PO SCH ×2 (09:41→21:51)
[2018-10-07] MEDS: CLONIDINE 0.2MG TABLET PO SCH ×2 (09:41→21:52)
[2018-10-07] MEDS: ENOXAPARIN 40MG/0.4ML SYR SUBCUT SCH (09:41)
[2018-10-07] MEDS: DOCUSATE SODIUM 100MG CAPSULE PO SCH ×2 (09:41→17:35)
[2018-10-07] MEDS: AMLODIPINE 10MG TABLET PO SCH ×2 (09:41→21:51)
[2018-10-07] MEDS: DIPHENHYDRAMINE 50MG/ML VIAL IV PRN (18:35)
[2018-10-08] VITALS: BP 155/61
[2018-10-08 04:00] VITALS: BP 144/59
[2018-10-08] MEDS: IPRATROPIUM/ALBUTEROL 0.5-3(2.5)MG/3ML NEB HHN SCH ×4 (04:40→16:08)
[2018-10-08] MEDS: HYDRALAZINE HCL 50MG TABLET PO SCH ×2 (05:33→13:07)
[2018-10-08] MEDS: BLOOD SUGAR DIAGNOSTIC STRIP TEST SCH ×2 (06:16→13:02)
[2018-10-08] MEDS: INSULIN LISPRO 100 UNITS/ML SUBCUT SCH ×2 (06:16→13:04)
[2018-10-08] MEDS: ASCORBIC ACID 250 MG TABLET PO SCH (08:50)
[2018-10-08] MEDS: MULTIVITAMINS,THER W-MINERALS TABLET PO SCH (08:50)
[2018-10-08] MEDS: ZINC SULFATE 220 MG ( 50 ) CAPSULE PO SCH (08:50)
[2018-10-08] MEDS: CLONIDINE 0.2MG TABLET PO SCH (08:51)
[2018-10-08] MEDS: LOSARTAN POTASSIUM 50 MG TABLET PO SCH (08:51)
[2018-10-08] MEDS: DOCUSATE SODIUM 100MG CAPSULE PO SCH ×2 (08:52→08:58)
[2018-10-08] MEDS: FAMOTIDINE 20MG TABLET PO SCH (08:52)
[2018-10-08] MEDS: AMLODIPINE 10MG TABLET PO SCH (08:52)
[2018-10-08] MEDS: ENOXAPARIN 40MG/0.4ML SYR SUBCUT SCH (08:53)
[2018-10-08] MEDS: DIPHENHYDRAMINE 50MG/ML VIAL IV PRN (09:08)
[2018-10-08 12:00] VITALS: BP 137/55
[2018-10-08 16:54] VITALS: BP 130/54
[2018-10-08 17:00] VITALS: BP 130/54
== END 2018-10-08 18:50 | disposition hospice, home (50) | DRG 270 ==
LOC: ER 19:25 → EDBEDREQ 22:42 → EDBEDREQSVC 22:42 → EDBEDREQTM 22:42 → ENRESERV 23:36 → 6EST 09-14 00:41 → 3WST 09-16 13:58 → CVICU 09-17 17:24 → 3WST 09-18 16:29 → 8WST 09-24 19:10
PROVIDERS: ADMIT Internal Medicine; ATTEND Internal Medicine
PROC: 02HV33Z Insertion of Infusion Device into Superior Vena Cava, Percutaneous Approach (ICD-10-PCS; 2018-09-16)
PROC: B548ZZA Ultrasonography of Superior Vena Cava, Guidance (ICD-10-PCS; 2018-09-16)
PROC: 0W9D00Z Drainage of Pericardial Cavity with Drainage Device, Open Approach (ICD-10-PCS; principal; 2018-09-17)
PROC: 02BN0ZX Excision of Pericardium, Open Approach, Diagnostic (ICD-10-PCS; 2018-09-17)
PROC: B246ZZ4 Ultrasonography of Right and Left Heart, Transesophageal (ICD-10-PCS; 2018-09-17)
PROC: 30233N1 Transfusion of Nonautologous Red Blood Cells into Peripheral Vein, Percutaneous Approach (ICD-10-PCS; 2018-09-23)
DX: I31.3 Pericardial effusion (noninflammatory) (principal); I50.33 Acute on chronic diastolic (congestive) heart failure; L03.119 Cellulitis of unspecified part of limb; N39.0 Urinary tract infection, site not specified; E11.52 Type 2 diabetes mellitus with diabetic peripheral angiopathy with gangrene; I82.411 Acute embolism and thrombosis of right femoral vein; E46 Unspecified protein-calorie malnutrition; E87.0 Hyperosmolality and hypernatremia; L97.425 Non-pressure chronic ulcer of left heel and midfoot with muscle involvement without evidence of necrosis; I31.4 Cardiac tamponade; E11.621 Type 2 diabetes mellitus with foot ulcer; L97.529 Non-pressure chronic ulcer of other part of left foot with unspecified severity; I11.0 Hypertensive heart disease with heart failure; L89.899 Pressure ulcer of other site, unspecified stage; L89.619 Pressure ulcer of right heel, unspecified stage; L89.159 Pressure ulcer of sacral region, unspecified stage; N31.9 Neuromuscular dysfunction of bladder, unspecified; M19.90 Unspecified osteoarthritis, unspecified site; B95.62 Methicillin resistant Staphylococcus aureus infection as the cause of diseases classified elsewhere; Z60.2 Problems related to living alone; E87.6 Hypokalemia; D64.9 Anemia, unspecified; E83.42 Hypomagnesemia; K59.00 Constipation, unspecified; Z74.01 Bed confinement status; Z75.1 Person awaiting admission to adequate facility elsewhere; Z79.899 Other long term (current) drug therapy; Z68.28 Body mass index [BMI] 28.0-28.9, adult; Z86.718 Personal history of other venous thrombosis and embolism; Z86.73 Personal history of transient ischemic attack (TIA), and cerebral infarction without residual deficits; Z88.1 Allergy status to other antibiotic agents; Z88.0 Allergy status to penicillin
CPT/HCPCS: 36415; 36600; 71045; 73630; 76937; 78582; 80048; 80061; 80202; 82270; 82375; 82550; 82553; 82805; 82962; 83540; 83550; 83615; 83735; 83880; 84132; 84443; 84484; 85014; 85018; 85027; 85049; 85379; 85384; 85651; 86140; 86850; 86900; 86920; 87070; 87075; 87077; 87102; 87106; 87116; 87186; 88108; 88305; 88312; 93005; 93306; 93923; 93970; 94640; 96365; 96367; 97110; 97162; 97164; 97166; 97168; 97530; 99285; A6261; A9558; C1725; J0171; J0360; J0696; J1200; J1450; J1650; J1815; J2060; J2250; J2270; J2405; J2704; J2710; J2765; J3010; J3370; J3475; J3480; J3490; J7040; J7050; J7060; J7070; J7620; P9016; A4315

== ENCOUNTER 2019-03-22 14:04 | Inpatient (IN) | payer MEDICARE, OTHER ==
[~2019-03-22] VITALS: Ht 162.6 cm; Wt 70.3 kg
[~2019-03-22 14:04] MED LIST changes: -ASPI-986 PO; +ASPI81TA47 MT; -FURO40TA5 PO; -GLYB5TAB7 PO; -PANT40TA4 PO
[2019-03-22] MEDS ORDERED: SODIUM CHLORIDE 0.9% 1,000 ML IV ONE (16:20)
[2019-03-22] MEDS ORDERED: MORPHINE SULFATE 4 MG/ML CPJ (NOT FOR IM USE) IV STA (16:20)
[2019-03-22] MEDS ORDERED: KETOROLAC 30MG/ML VIAL IV STA (16:20)
[2019-03-22] MEDS ORDERED: ONDANSETRON HCL 4MG/2ML INJ IV STA (16:20)
[2019-03-22] MEDS ORDERED: VANCOMYCIN 1 G PREMIX 200 ML IV SCH (16:30)
[2019-03-22] MEDS ORDERED: SULFAMETHOXAZOLE/TRIMETHOPRIM 800/160MG TABLET PO ONE (16:30)
[2019-03-22 18:16] LABS: BASOPHILS % 0.5 % (0.0-2.0); EOSINOPHILS % 0.3 % (0.0-5.0); LYMPHOCYTES % 14.9 % (20.0-50.0); MEAN CORPUSCULAR HEMOGLOBIN 22.3 pg (28.0-32.0); MEAN CORPUSCULAR VOLUME 72.3 fL (81.0-99.0); MEAN PLATELET VOLUME 7.2 fl (7.4-10.4); MONOCYTES % 3.2 % (2.0-8.0); NEUTROPHILS % 81.1 % (40.0-76.0); PLATELET 626 x1000/uL (130-400); RED BLOOD CELL COUNT 3.11 mill/uL (4.2-5.4); RED CELL DISTRIBUTION WIDTH 19.5 % (11.6-14.6)
[2019-03-22 18:18] LABS: CHLORIDE 108 mEq/L (98-107)
[2019-03-22 18:22] LABS: HEMOGLOBIN. 6.9 g/dL (12.0-16.0)
[2019-03-22 18:23] LABS: HEMATOCRIT. 22.5 % (36.0-48.0)
[2019-03-22 18:31] LABS: INR 1.1; PROTHROMBIN TIME 11.2 sec (9.6-11.0)
[2019-03-22 19:14] LABS: CLARITY URINE CLOUDY (CLEAR); COLOR URINE DARK YELLOW (YELLOW); KETONES URINE TRACE (NEGATIVE); LEUKOCYTE ESTERASE URINE 2+ (NEGATIVE); NITRITE URINE POSITIVE (NEGATIVE); OCCULT BLOOD URINE NEGATIVE (NEGATIVE); PROTEIN URINE 1+ (NEGATIVE); SPECIFIC GRAVITY URINE 1.014 (1.005-1.030); UROBILINOGEN URINE 0.2 E.U./dL (0.2-1.0)
[2019-03-23] MEDS ORDERED: IPRATROPIUM/ALBUTEROL 0.5-3(2.5)MG/3ML NEB HHN PRN (10:15)
[2019-03-23] MEDS ORDERED: ONDANSETRON HCL 4MG/2ML INJ IV PRN (10:15)
[2019-03-23 11:00] VITALS: BP 127/43
[2019-03-23 11:58] VITALS: BP 130/56
[2019-03-23] MEDS ORDERED: ACET650T37 PO (12:06)
[2019-03-23] MEDS ORDERED: AMLO-337 PO (12:08)
[2019-03-23] MEDS ORDERED: CLON-457 PO (12:09)
[2019-03-23] MEDS ORDERED: BISA10SU62 RC (12:10)
[2019-03-23] MEDS ORDERED: HYDR-4135 PO (12:11)
[2019-03-23] MEDS ORDERED: LORA2TAB2 PO (12:13)
[2019-03-23] MEDS ORDERED: LOSA50TA41 PO (12:14)
[2019-03-23] MEDS ORDERED: SERT20OR6 PO (12:16)
[2019-03-23] MEDS ORDERED: HYDR-3281 PO (12:17)
[2019-03-23] MEDS: VANCOMYCIN 750 MG PREMIX 150 ML IV SCH (12:24)
[2019-03-23 15:18] LABS: BASOPHILS % 0.6 % (0.0-2.0); EOSINOPHILS % 1.3 % (0.0-5.0); HEMATOCRIT. 25.7 % (36.0-48.0); LYMPHOCYTES % 12.6 % (20.0-50.0); MEAN CORPUSCULAR HEMOGLOBIN 23.5 pg (28.0-32.0); MEAN CORPUSCULAR VOLUME 75.4 fL (81.0-99.0); MONOCYTES % 5.1 % (2.0-8.0); NEUTROPHILS % 80.4 % (40.0-76.0); PLATELET 515 x1000/uL (130-400); RED BLOOD CELL COUNT 3.41 mill/uL (4.2-5.4)
[2019-03-23 15:26] LABS: CHLORIDE 114 mEq/L (98-107)
[2019-03-23 16:00] VITALS: BP 131/55
[2019-03-23] MEDS ORDERED: LORAZEPAM 2MG/ML CPJ IV PRN (17:00)
[2019-03-23] MEDS ORDERED: ACETAMINOPHEN 650MG SUPP PR PRN (17:00)
[2019-03-23 20:00] VITALS: BP 119/50
[2019-03-23 20:51] LABS: HEMATOCRIT 24.7 % (36.0-48.0); HEMOGLOBIN 7.7 g/dL (12.0-16.0)
[2019-03-23] MEDS: ACETAMINOPHEN 325MG TABLET PO PRN (20:56)
[2019-03-23] MEDS: HYDROCODONE/ACETAMINOPHEN 5/325MG TABLET PO PRN (21:57)
[2019-03-23] MEDS ORDERED: TRAMADOL 50MG TABLET PO PRN (23:15)
[2019-03-23 23:44] VITALS: BP 118/51
[2019-03-24] VITALS (9 sets, daily range): BP systolic 120–145; BP diastolic 47–54
[2019-03-24] MEDS: HYDROCODONE/ACETAMINOPHEN 5/325MG TABLET PO PRN (04:36)
[2019-03-24] MEDS: VANCOMYCIN 750 MG PREMIX 150 ML IV SCH (06:37)
[2019-03-24 08:00] LABS: BASOPHILS % 0.3 % (0.0-2.0); EOSINOPHILS % 1.8 % (0.0-5.0); HEMATOCRIT. 22.2 % (36.0-48.0); HEMOGLOBIN. 7.2 g/dL (12.0-16.0); LYMPHOCYTES % 18.5 % (20.0-50.0); MEAN CORPUSCULAR HEMOGLOBIN 23.8 pg (28.0-32.0); MEAN CORPUSCULAR VOLUME 73.9 fL (81.0-99.0); MEAN PLATELET VOLUME 7.3 fl (7.4-10.4); MONOCYTES % 7.6 % (2.0-8.0); NEUTROPHILS % 71.8 % (40.0-76.0); PLATELET 508 x1000/uL (130-400); RED BLOOD CELL COUNT 3.01 mill/uL (4.2-5.4); RED CELL DISTRIBUTION WIDTH 20.1 % (11.6-14.6)
[2019-03-24 08:16] LABS: CHLORIDE 111 mEq/L (98-107)
[2019-03-24] MEDS: ACETAMINOPHEN 325MG TABLET PO PRN (12:10)
[2019-03-24] MEDS ORDERED: DOCUSATE SODIUM 100MG CAPSULE PO PRN (17:15)
[2019-03-24] MEDS: MEROPENEM 1,000 MG in SODIUM CHLORIDE 0.9% 100 ML IV SCH (20:55)
[2019-03-24 21:30] LABS: HEMATOCRIT 27.6 % (36.0-48.0); HEMOGLOBIN 8.6 g/dL (12.0-16.0)
[2019-03-24] MEDS: DEXT 5%/0.45% NACL 1000ML 1,000 ML IV SCH (22:00)
[2019-03-25] VITALS: BP 157/42
[2019-03-25] MEDS: VANCOMYCIN 750 MG PREMIX 150 ML IV SCH (00:42)
[2019-03-25 04:00] VITALS: BP 165/62
[2019-03-25] MEDS: MEROPENEM 1,000 MG in SODIUM CHLORIDE 0.9% 100 ML IV SCH ×3 (04:56→20:00)
[2019-03-25] MEDS: HYDROCODONE/ACETAMINOPHEN 5/325MG TABLET PO PRN (06:39)
[2019-03-25 06:59] LABS: CHLORIDE 110 mEq/L (98-107)
[2019-03-25 07:17] LABS: HEMATOCRIT 27.6 % (36.0-48.0); HEMOGLOBIN 8.7 g/dL (12.0-16.0); MEAN CORPUSCULAR HEMOGLOBIN 23.8 pg (28.0-32.0); MEAN CORPUSCULAR VOLUME 75.9 fL (81.0-99.0); PLATELET 509 x1000/uL (130-400); RED BLOOD CELL COUNT 3.64 mill/uL (4.2-5.4); RED CELL DISTRIBUTION WIDTH 19.7 % (11.6-14.6)
[2019-03-25 08:00] VITALS: BP 155/54
[2019-03-25 12:00] VITALS: BP 138/54
[2019-03-25] MEDS: VANCOMYCIN 1 G PREMIX 200 ML IV SCH (15:25)
[2019-03-25 16:00] VITALS: BP 128/69
[2019-03-25] MEDS ORDERED: VANCOMYCIN HCL 1 GM/VIAL ONE ×2 (16:30→18:43)
[2019-03-25] MEDS ORDERED: METOCLOPRAMIDE HCL 10MG/2ML VIAL ONE (18:57)
[2019-03-25] MEDS ORDERED: LIDOCAINE HCL/PF 1% 10 MG/ML 5ML VIAL ONE (18:57)
[2019-03-25] MEDS ORDERED: FENTANYL CITRATE/PF 50MCG/ML 2ML VIAL ONE (18:57)
[2019-03-25] MEDS ORDERED: SUCCINYLCHOLINE CHLORIDE 200MG/10ML IV ONE (18:57)
[2019-03-25] MEDS ORDERED: GLYCOPYRROLATE 0.2 MG/ML 2ML VIAL ONE (18:57)
[2019-03-25] MEDS ORDERED: ONDANSETRON HCL 4MG/2ML INJ ONE (18:57)
[2019-03-25] MEDS ORDERED: MIDAZOLAM HCL 2 MG/2 ML VIAL ONE (18:57)
[2019-03-25] MEDS ORDERED: PROPOFOL 200MG/20ML VIAL IV ONE (18:57)
[2019-03-25] MEDS ORDERED: SODIUM CHLORIDE 0.9% 1,000 ML IV ONE (20:39)
[2019-03-25] MEDS ORDERED: MEPERIDINE HCL/PF 25MG/ML CPJ IV PRN (20:45)
[2019-03-25] MEDS ORDERED: MORPHINE SULFATE 2 MG/ML CPJ (NOT FOR IM USE) IV PRN (20:45)
[2019-03-25] MEDS ORDERED: ONDANSETRON HCL 4MG/2ML INJ IV PRN (20:45)
[2019-03-25] MEDS ORDERED: HYDROMORPHONE HCL/PF 2MG/ML CPJ IV PRN (20:45)
[2019-03-25] MEDS ORDERED: BUPIVACAINE/EPINEPH/PF 0.25%/0.0005 10ML ONE (20:50)
[2019-03-25 22:28] VITALS: BP 97/37
[2019-03-26] VITALS (11 sets, daily range): BP systolic 99–149; BP diastolic 46–95
[2019-03-26] MEDS: MEROPENEM 1,000 MG in SODIUM CHLORIDE 0.9% 100 ML IV SCH ×3 (03:34→20:55)
[2019-03-26] MEDS: MORPHINE SULFATE 2 MG/ML CPJ (NOT FOR IM USE) IV PRN ×2 (06:17→11:39)
[2019-03-26 09:11] LABS: HEMATOCRIT 23.8 % (36.0-48.0); HEMOGLOBIN 7.4 g/dL (12.0-16.0); MEAN CORPUSCULAR HEMOGLOBIN 23.9 pg (28.0-32.0); MEAN CORPUSCULAR VOLUME 77.1 fL (81.0-99.0); PLATELET 449 x1000/uL (130-400); RED BLOOD CELL COUNT 3.09 mill/uL (4.2-5.4); RED CELL DISTRIBUTION WIDTH 20.1 % (11.6-14.6)
[2019-03-26 09:34] LABS: CHLORIDE 113 mEq/L (98-107)
[2019-03-26] MEDS: VANCOMYCIN 1 G PREMIX 200 ML IV SCH (09:39)
[2019-03-26] MEDS: DEXT 5%/0.45% NACL 1000ML 1,000 ML IV SCH (11:39)
[2019-03-26] MEDS: HYDROCODONE/ACETAMINOPHEN 5/325MG TABLET PO PRN (20:32)
[2019-03-27] VITALS: BP 143/61
[2019-03-27] MEDS: MEROPENEM 1,000 MG in SODIUM CHLORIDE 0.9% 100 ML IV SCH ×3 (03:21→20:30)
[2019-03-27] MEDS: VANCOMYCIN 1 G PREMIX 200 ML IV SCH ×2 (03:21→21:26)
[2019-03-27 04:00] VITALS: BP 145/60
[2019-03-27] MEDS: MORPHINE SULFATE 2 MG/ML CPJ (NOT FOR IM USE) IV PRN ×3 (05:58→21:27)
[2019-03-27 06:53] LABS: HEMATOCRIT 24.9 % (36.0-48.0); HEMOGLOBIN 8.1 g/dL (12.0-16.0); MEAN CORPUSCULAR HEMOGLOBIN 25.2 pg (28.0-32.0); MEAN CORPUSCULAR VOLUME 77.9 fL (81.0-99.0); PLATELET 345 x1000/uL (130-400); RED CELL DISTRIBUTION WIDTH 19.6 % (11.6-14.6)
[2019-03-27 07:05] LABS: CHLORIDE 111 mEq/L (98-107)
[2019-03-27 08:00] VITALS: BP 151/74
[2019-03-27 12:00] VITALS: BP 137/51
[2019-03-27] MEDS: HYDROCODONE/ACETAMINOPHEN 5/325MG TABLET PO PRN (14:38)
[2019-03-27 16:00] VITALS: BP 154/61
[2019-03-27 20:00] VITALS: BP_SYST 133; BP_SYST 148; BP_DIAS 70; BP_DIAS 83
[2019-03-28] VITALS: BP 172/70
[2019-03-28] MEDS: HYDRALAZINE 20MG/ML VIAL IV PRN (01:16)
[2019-03-28] MEDS: MORPHINE SULFATE 2 MG/ML CPJ (NOT FOR IM USE) IV PRN ×2 (02:14→06:39)
[2019-03-28] MEDS: DEXT 5%/0.45% NACL 1000ML 1,000 ML IV SCH ×2 (02:15→17:44)
[2019-03-28] MEDS: MEROPENEM 1,000 MG in SODIUM CHLORIDE 0.9% 100 ML IV SCH ×3 (03:03→20:30)
[2019-03-28 04:00] VITALS: BP 121/67
[2019-03-28 08:00] VITALS: BP 139/60
[2019-03-28 08:17] LABS: HEMOGLOBIN 8.9 g/dL (12.0-16.0); MEAN CORPUSCULAR HEMOGLOBIN 25.7 pg (28.0-32.0); MEAN CORPUSCULAR VOLUME 78.2 fL (81.0-99.0); PLATELET 390 x1000/uL (130-400); RED BLOOD CELL COUNT 3.45 mill/uL (4.2-5.4); RED CELL DISTRIBUTION WIDTH 20.1 % (11.6-14.6)
[2019-03-28 08:40] LABS: CHLORIDE 109 mEq/L (98-107)
[2019-03-28] MEDS: HYDROCODONE/ACETAMINOPHEN 5/325MG TABLET PO PRN (11:12)
[2019-03-28 12:00] VITALS: BP 119/54
[2019-03-28 16:00] VITALS: BP 155/57
[2019-03-28 20:00] VITALS: BP 122/77
[2019-03-28] MEDS: VANCOMYCIN 750 MG PREMIX 150 ML IV SCH (22:01)
[2019-03-29] VITALS: BP 153/62
[2019-03-29 04:00] VITALS: BP 90/57
[2019-03-29] MEDS: MEROPENEM 1,000 MG in SODIUM CHLORIDE 0.9% 100 ML IV SCH ×3 (04:33→21:53)
[2019-03-29] MEDS: ACETAMINOPHEN 325MG TABLET PO PRN ×3 (05:49→20:57)
[2019-03-29 08:00] VITALS: BP 171/51
[2019-03-29] MEDS: HYDRALAZINE 20MG/ML VIAL IV PRN (09:25)
[2019-03-29 12:00] VITALS: BP 123/46
[2019-03-29] MEDS: DEXT 5%/0.45% NACL 1000ML 1,000 ML IV SCH (12:38)
[2019-03-29 16:00] VITALS: BP 140/48
[2019-03-29 16:24] LABS: MEAN CORPUSCULAR HEMOGLOBIN 25.8 pg (28.0-32.0); MEAN CORPUSCULAR VOLUME 77.2 fL (81.0-99.0); PLATELET 339 x1000/uL (130-400); RED BLOOD CELL COUNT 3.11 mill/uL (4.2-5.4); RED CELL DISTRIBUTION WIDTH 20.2 % (11.6-14.6)
[2019-03-29 16:35] LABS: CHLORIDE 112 mEq/L (98-107)
[2019-03-29 20:00] VITALS: BP 140/68
[2019-03-29] MEDS: VANCOMYCIN 750 MG PREMIX 150 ML IV SCH (22:34)
[2019-03-30] VITALS: BP 155/56
[2019-03-30 04:00] VITALS: BP 148/71
[2019-03-30] MEDS: MEROPENEM 1,000 MG in SODIUM CHLORIDE 0.9% 100 ML IV SCH ×3 (04:06→20:06)
[2019-03-30] MEDS: ACETAMINOPHEN 325MG TABLET PO PRN ×2 (06:23→15:03)
[2019-03-30 08:00] VITALS: BP 151/63
[2019-03-30] MEDS: DEXT 5%/0.45% NACL 1000ML 1,000 ML IV SCH (11:09)
[2019-03-30 12:00] VITALS: BP 154/70
[2019-03-30 16:00] VITALS: BP 152/56
[2019-03-30 20:00] VITALS: BP 148/62
[2019-03-30] MEDS: VANCOMYCIN 750 MG PREMIX 150 ML IV SCH (21:15)
[2019-03-31] VITALS: BP 157/57
[2019-03-31 04:00] VITALS: BP 151/58
[2019-03-31] MEDS: DEXT 5%/0.45% NACL 1000ML 1,000 ML IV SCH ×2 (04:07→17:32)
[2019-03-31] MEDS: ACETAMINOPHEN 325MG TABLET PO PRN ×3 (04:43→17:30)
[2019-03-31 08:00] VITALS: BP 160/59
[2019-03-31 12:00] VITALS: BP 168/57
[2019-03-31 16:00] VITALS: BP 161/61
[2019-03-31 20:00] VITALS: BP 156/50
[2019-04-01] VITALS: BP 156/47
[2019-04-01 04:00] VITALS: BP 182/66
[2019-04-01] MEDS: HYDRALAZINE 20MG/ML VIAL IV PRN ×2 (05:16→12:49)
[2019-04-01] MEDS: ACETAMINOPHEN 325MG TABLET PO PRN ×3 (06:39→18:55)
[2019-04-01 08:00] VITALS: BP 112/55
[2019-04-01] MEDS: DEXT 5%/0.45% NACL 1000ML 1,000 ML IV SCH (09:22)
[2019-04-01 12:00] VITALS: BP 166/54
[2019-04-01 15:58] VITALS: BP 131/50
[2019-04-01] MEDS ORDERED: LACTULOSE 20G/30ML UDC PO PRN (18:45)
[2019-04-01] MEDS ORDERED: LORAZEPAM 2MG/ML CPJ IV PRN (18:45)
[2019-04-01 20:00] VITALS: BP 154/57
[2019-04-02] VITALS: BP 149/67
[2019-04-02] MEDS: ACETAMINOPHEN 325MG TABLET PO PRN (01:44)
[2019-04-02 04:00] VITALS: BP 164/58
[2019-04-02 05:41] LABS: HEMATOCRIT 25.1 % (36.0-48.0); HEMOGLOBIN 8.2 g/dL (12.0-16.0); MEAN CORPUSCULAR HEMOGLOBIN 25.2 pg (28.0-32.0); MEAN CORPUSCULAR VOLUME 77.6 fL (81.0-99.0); PLATELET 355 x1000/uL (130-400); RED BLOOD CELL COUNT 3.24 mill/uL (4.2-5.4); RED CELL DISTRIBUTION WIDTH 20.3 % (11.6-14.6)
[2019-04-02] MEDS: HYDRALAZINE 20MG/ML VIAL IV PRN (06:01)
[2019-04-02 06:17] LABS: CHLORIDE 113 mEq/L (98-107)
[2019-04-02 08:00] VITALS: BP 146/63
[2019-04-02 12:00] VITALS: BP 150/50
[2019-04-02] MEDS: HYDROCODONE/ACETAMINOPHEN 5/325MG TABLET PO PRN (12:01)
[2019-04-02 16:00] VITALS: BP 151/57
[2019-04-02 20:00] VITALS: BP 136/70
[2019-04-02] MEDS: MORPHINE SULFATE 2 MG/ML CPJ (NOT FOR IM USE) IV PRN (20:46)
[2019-04-03] VITALS: BP 151/64
[2019-04-03 04:00] VITALS: BP 145/65
[2019-04-03] MEDS: HYDROCODONE/ACETAMINOPHEN 5/325MG TABLET PO PRN ×3 (04:18→19:55)
[2019-04-03] MEDS: MORPHINE SULFATE 2 MG/ML CPJ (NOT FOR IM USE) IV PRN (05:33)
[2019-04-03 08:00] VITALS: BP 151/50
[2019-04-03 12:00] VITALS: BP 158/54
[2019-04-03 16:00] VITALS: BP 165/60
[2019-04-03] MEDS: HYDRALAZINE 20MG/ML VIAL IV PRN (17:33)
[2019-04-03 20:00] VITALS: BP 128/71
[2019-04-04] VITALS: BP 155/54
[2019-04-04] MEDS: HYDROCODONE/ACETAMINOPHEN 5/325MG TABLET PO PRN ×2 (06:27→17:19)
[2019-04-04 08:00] VITALS: BP 156/50
[2019-04-04 08:52] LABS: HEMATOCRIT 25.5 % (36.0-48.0); HEMOGLOBIN 8.3 g/dL (12.0-16.0); MEAN CORPUSCULAR HEMOGLOBIN 25.4 pg (28.0-32.0); MEAN CORPUSCULAR VOLUME 78.3 fL (81.0-99.0); PLATELET 361 x1000/uL (130-400); RED BLOOD CELL COUNT 3.26 mill/uL (4.2-5.4); RED CELL DISTRIBUTION WIDTH 20.7 % (11.6-14.6)
[2019-04-04 09:01] LABS: CHLORIDE 111 mEq/L (98-107)
[2019-04-04 12:00] VITALS: BP 126/63
[2019-04-04 16:00] VITALS: BP 112/67
[2019-04-04 20:00] VITALS: BP 156/68
[2019-04-05] VITALS: BP 154/70
[2019-04-05 04:00] VITALS: BP 154/88
[2019-04-05 08:00] VITALS: BP 162/71
[2019-04-05 12:00] VITALS: BP 167/55
[2019-04-05] MEDS: HYDROCODONE/ACETAMINOPHEN 5/325MG TABLET PO PRN ×2 (12:34→20:12)
[2019-04-05 16:00] VITALS: BP 111/57
[2019-04-05 20:00] VITALS: BP 144/60
[2019-04-06] VITALS: BP 171/68
[2019-04-06 04:00] VITALS: BP 170/66
[2019-04-06] MEDS: HYDRALAZINE 20MG/ML VIAL IV PRN (06:20)
[2019-04-06 08:00] VITALS: BP 144/51
[2019-04-06 11:26] LABS: CHLORIDE 112 mEq/L (98-107)
[2019-04-06 11:30] LABS: HEMATOCRIT 23.3 % (36.0-48.0); HEMOGLOBIN 7.7 g/dL (12.0-16.0); MEAN CORPUSCULAR VOLUME 78.5 fL (81.0-99.0); PLATELET 340 x1000/uL (130-400); RED BLOOD CELL COUNT 2.96 mill/uL (4.2-5.4); RED CELL DISTRIBUTION WIDTH 21.6 % (11.6-14.6)
[2019-04-06 12:00] VITALS: BP 150/54
[2019-04-06 16:00] VITALS: BP 137/53
[2019-04-06] MEDS ORDERED: LORAZEPAM 2MG/ML CPJ IV PRN (20:15)
[2019-04-06] MEDS ORDERED: DIPHENHYDRAMINE 50MG/ML VIAL IV PRN (20:15)
[2019-04-06] MEDS: HYDROCODONE/ACETAMINOPHEN 5/325MG TABLET PO PRN (20:37)
[2019-04-07] VITALS: BP 184/62
[2019-04-07 04:00] VITALS: BP 127/66
[2019-04-07] MEDS: HYDROCODONE/ACETAMINOPHEN 5/325MG TABLET PO PRN ×2 (06:07→20:27)
[2019-04-07 08:00] VITALS: BP 153/48
[2019-04-07 11:53] LABS: HEMATOCRIT 24.5 % (36.0-48.0); HEMOGLOBIN 7.8 g/dL (12.0-16.0)
[2019-04-07 12:00] VITALS: BP 152/53
[2019-04-07 16:00] VITALS: BP 125/68
[2019-04-07 20:00] VITALS: BP 176/72
[2019-04-08] VITALS (7 sets, daily range): BP systolic 135–194; BP diastolic 34–66
[2019-04-08] MEDS: HYDRALAZINE 20MG/ML VIAL IV PRN (00:46)
[2019-04-08 09:21] LABS: HEMATOCRIT 24.4 % (36.0-48.0); HEMOGLOBIN 7.8 g/dL (12.0-16.0); MEAN CORPUSCULAR HEMOGLOBIN 25.2 pg (28.0-32.0); MEAN CORPUSCULAR VOLUME 78.9 fL (81.0-99.0); PLATELET 329 x1000/uL (130-400); RED BLOOD CELL COUNT 3.09 mill/uL (4.2-5.4)
[2019-04-08] MEDS: HYDROCODONE/ACETAMINOPHEN 5/325MG TABLET PO PRN (16:28)
[2019-04-08] MEDS ORDERED: ASPIRIN 81MG TABLET PO NR (22:15)
[2019-04-09] VITALS: BP 158/54
[2019-04-09 04:00] VITALS: BP 159/56
[2019-04-09] MEDS: ACETAMINOPHEN 325MG TABLET PO PRN ×3 (06:07→20:55)
[2019-04-09 08:00] VITALS: BP 185/68
[2019-04-09] MEDS: ASPIRIN 81MG TABLET PO SCH (08:05)
[2019-04-09 12:00] VITALS: BP 161/60
[2019-04-09 16:00] VITALS: BP 172/69
[2019-04-09] MEDS: HYDRALAZINE 20MG/ML VIAL IV PRN (16:34)
[2019-04-09 20:00] VITALS: BP 150/51
[2019-04-10] VITALS (7 sets, daily range): BP systolic 142–171; BP diastolic 35–77
[2019-04-10] MEDS: HYDROCODONE/ACETAMINOPHEN 5/325MG TABLET PO PRN ×2 (02:01→11:39)
[2019-04-10] MEDS: ASPIRIN 81MG TABLET PO SCH (09:24)
[2019-04-11] VITALS: BP 159/65
[2019-04-11 04:00] VITALS: BP 166/68
[2019-04-11] MEDS: HYDROCODONE/ACETAMINOPHEN 5/325MG TABLET PO PRN ×2 (05:47→17:10)
[2019-04-11 06:43] LABS: HEMATOCRIT 25.1 % (36.0-48.0)
[2019-04-11 08:00] VITALS: BP 135/51
[2019-04-11] MEDS: ASPIRIN 81MG TABLET PO SCH (08:45)
[2019-04-11 12:00] VITALS: BP 157/46
[2019-04-11] MEDS ORDERED: HYDRALAZINE 10 MG in SODIUM CHLORIDE 0.9% 49.5 ML IV PRN (15:45)
[2019-04-11 16:00] VITALS: BP 170/68
[2019-04-11] MEDS: AMLODIPINE 5MG TABLET PO SCH (17:09)
[2019-04-11 20:00] VITALS: BP 146/51
[2019-04-11] MEDS: HYDRALAZINE HCL 25MG TABLET PO SCH (22:18)
[2019-04-12] VITALS: BP 124/49
[2019-04-12 04:00] VITALS: BP 156/63
[2019-04-12] MEDS: HYDRALAZINE HCL 25MG TABLET PO SCH ×3 (06:24→21:05)
[2019-04-12 08:00] VITALS: BP 167/53
[2019-04-12] MEDS: ASPIRIN 81MG TABLET PO SCH (08:58)
[2019-04-12] MEDS: AMLODIPINE 5MG TABLET PO SCH (09:04)
[2019-04-12 12:00] VITALS: BP 156/58
[2019-04-12] MEDS: ACETAMINOPHEN 325MG TABLET PO PRN (12:33)
[2019-04-12 16:00] VITALS: BP 143/53
[2019-04-12] MEDS: HYDROCODONE/ACETAMINOPHEN 5/325MG TABLET PO PRN (16:52)
[2019-04-12 20:00] VITALS: BP 112/55
[2019-04-13] VITALS: BP 155/52
[2019-04-13 04:00] VITALS: BP 147/52
[2019-04-13] MEDS: HYDRALAZINE HCL 25MG TABLET PO SCH ×3 (05:38→21:07)
[2019-04-13] MEDS: ASPIRIN 81MG TABLET PO SCH (08:28)
[2019-04-13] MEDS: AMLODIPINE 5MG TABLET PO SCH (08:29)
[2019-04-13] MEDS: HYDROCODONE/ACETAMINOPHEN 5/325MG TABLET PO PRN (10:52)
[2019-04-13 20:00] VITALS: BP 146/62
[2019-04-14] VITALS: BP 164/65
[2019-04-14 04:00] VITALS: BP 132/55
[2019-04-14] MEDS: HYDRALAZINE HCL 25MG TABLET PO SCH ×3 (05:12→21:37)
[2019-04-14 08:00] VITALS: BP 158/45
[2019-04-14] MEDS: AMLODIPINE 5MG TABLET PO SCH (09:28)
[2019-04-14] MEDS: ASPIRIN 81MG TABLET PO SCH (09:28)
[2019-04-14 12:00] VITALS: BP 154/52
[2019-04-14 16:00] VITALS: BP 162/65
[2019-04-14 20:00] VITALS: BP 164/70
[2019-04-14] MEDS: HYDROCODONE/ACETAMINOPHEN 5/325MG TABLET PO PRN (21:40)
[2019-04-15] VITALS: BP 152/64
[2019-04-15 04:00] VITALS: BP 119/53
[2019-04-15] MEDS: HYDRALAZINE HCL 25MG TABLET PO SCH ×3 (05:19→21:48)
[2019-04-15 08:00] VITALS: BP 141/95
[2019-04-15] MEDS: AMLODIPINE 5MG TABLET PO SCH (08:44)
[2019-04-15] MEDS: ASPIRIN 81MG TABLET PO SCH (08:44)
[2019-04-15 12:00] VITALS: BP 106/49
[2019-04-15 16:00] VITALS: BP 106/58
[2019-04-15 20:00] VITALS: BP 156/63
[2019-04-15] MEDS: HYDROCODONE/ACETAMINOPHEN 5/325MG TABLET PO PRN (21:49)
[2019-04-16] VITALS (7 sets, daily range): BP systolic 143–158; BP diastolic 48–63
[2019-04-16 05:43] LABS: CHLORIDE 114 mEq/L (98-107)
[2019-04-16 06:06] LABS: HEMATOCRIT 24.7 % (36.0-48.0); MEAN CORPUSCULAR HEMOGLOBIN 26.2 pg (28.0-32.0); MEAN CORPUSCULAR VOLUME 81.5 fL (81.0-99.0); PLATELET 306 x1000/uL (130-400); RED BLOOD CELL COUNT 3.03 mill/uL (4.2-5.4); RED CELL DISTRIBUTION WIDTH 24.2 % (11.6-14.6)
[2019-04-16] MEDS: HYDRALAZINE HCL 25MG TABLET PO SCH ×3 (06:39→21:09)
[2019-04-16] MEDS: ASPIRIN 81MG TABLET PO SCH (09:08)
[2019-04-16] MEDS: AMLODIPINE 5MG TABLET PO SCH ×2 (09:09→21:10)
[2019-04-16] MEDS: HYDROCODONE/ACETAMINOPHEN 5/325MG TABLET PO PRN (16:00)
[2019-04-17] VITALS (7 sets, daily range): BP systolic 141–163; BP diastolic 50–67
[2019-04-17] MEDS: HYDRALAZINE HCL 25MG TABLET PO SCH ×2 (05:03→14:31)
[2019-04-17] MEDS: ASPIRIN 81MG TABLET PO SCH (08:34)
[2019-04-17] MEDS: AMLODIPINE 5MG TABLET PO SCH ×2 (08:34→20:15)
[2019-04-17] MEDS: ACETAMINOPHEN 325MG TABLET PO PRN (17:32)
== END 2019-04-17 20:39 | DRG 239 ==
LOC: ER 14:45 → EDBEDREQ 20:57 → EDBEDREQTM 20:57 → ENRESERV 03-23 08:15 → 5WST 03-23 09:20 → 6EST 04-10 16:49
PROVIDERS: ADMIT Internal Medicine; ATTEND Internal Medicine
PROC: 30233N1 Transfusion of Nonautologous Red Blood Cells into Peripheral Vein, Percutaneous Approach (ICD-10-PCS; 2019-03-23)
PROC: 0Y6D0Z3 Detachment at Left Upper Leg, Low, Open Approach (ICD-10-PCS; principal; 2019-03-25)
DX: E11.52 Type 2 diabetes mellitus with diabetic peripheral angiopathy with gangrene (principal); I50.33 Acute on chronic diastolic (congestive) heart failure; E43 Unspecified severe protein-calorie malnutrition; M86.8X7 Other osteomyelitis, ankle and foot; N39.0 Urinary tract infection, site not specified; E87.2 Acidosis; E11.621 Type 2 diabetes mellitus with foot ulcer; D64.9 Anemia, unspecified; I11.0 Hypertensive heart disease with heart failure; M19.90 Unspecified osteoarthritis, unspecified site; E78.00 Pure hypercholesterolemia, unspecified; E11.40 Type 2 diabetes mellitus with diabetic neuropathy, unspecified; E86.0 Dehydration; F32.9 Major depressive disorder, single episode, unspecified; F41.9 Anxiety disorder, unspecified; L89.890 Pressure ulcer of other site, unstageable; E11.69 Type 2 diabetes mellitus with other specified complication; L97.529 Non-pressure chronic ulcer of other part of left foot with unspecified severity; R62.7 Adult failure to thrive; Z68.26 Body mass index [BMI] 26.0-26.9, adult; Z74.01 Bed confinement status; Z79.899 Other long term (current) drug therapy; Z82.49 Family history of ischemic heart disease and other diseases of the circulatory system; Z86.718 Personal history of other venous thrombosis and embolism; Z86.73 Personal history of transient ischemic attack (TIA), and cerebral infarction without residual deficits; Z89.612 Acquired absence of left leg above knee; Z98.62 Peripheral vascular angioplasty status; Z88.0 Allergy status to penicillin; Z88.1 Allergy status to other antibiotic agents; Z79.82 Long term (current) use of aspirin; L89.159 Pressure ulcer of sacral region, unspecified stage
CPT/HCPCS: 36415; 71045; 72040; 73552; 73630; 73721; 80048; 80053; 80202; 81003; 82962; 83605; 84145; 84484; 85014; 85018; 85025; 85027; 85044; 86850; 86900; 86920; 87070; 87077; 87186; 88307; 88311; 93005; 93923; 93971; 99285; A6261; C1893; J0171; J0330; J0360; J1885; J2185; J2250; J2270; J2405; J2704; J2765; J3010; J3370; J3490; J7030; J7040; J7050; P9016

== ENCOUNTER 2020-06-07 13:47 | Emergency (ER) | payer BC, MEDICARE ==
[~2020-06-07] VITALS: Ht 162.6 cm; Wt 56.3 kg
[~2020-06-07 13:47] MED LIST changes: +ACET650T37 PO; +AMLO-337 PO; +BISA10SU62 RC; +BLOO-1465 MT; +BLOO1KIT74 TP; +CLON-457 PO; +HYDR-4001 MT; +HYDR-4135 PO; +HYDR-4346 PO; +LANC1COM2 MC; +LOSA50TA41 PO; +METO5TAB86 MT; +NITR-87 MT; +SERT20OR6 PO
[2020-06-07 14:47] LABS: BASOPHILS % 0.3 % (0.0-2.0); HEMATOCRIT. 28.4 % (36.0-48.0); HEMOGLOBIN. 8.5 g/dL (12.0-16.0); LYMPHOCYTES % 10.7 % (20.0-50.0); MEAN CORPUSCULAR HEMOGLOBIN 24.5 pg (28.0-32.0); MEAN CORPUSCULAR VOLUME 81.7 fL (81.0-99.0); MEAN PLATELET VOLUME 7.5 fl (7.4-10.4); MONOCYTES % 5.4 % (2.0-8.0); NEUTROPHILS % 83.6 % (40.0-76.0); PLATELET 282 x1000/uL (130-400); RED BLOOD CELL COUNT 3.47 mill/uL (4.2-5.4); RED CELL DISTRIBUTION WIDTH 17.6 % (11.6-14.6)
[2020-06-07 14:50] LABS: CHLORIDE 111 mEq/L (98-107)
[2020-06-07 14:54] LABS: INR 1.2
[2020-06-07] MEDS ORDERED: SODIUM CHLORIDE 0.9% 1,000 ML IV ONE (15:45)
[2020-06-07] MEDS ORDERED: VANCOMYCIN 1 G PREMIX 200 ML IV NR (16:00)
[2020-06-07] MEDS ORDERED: AZTREONAM 2 GM in DEXT 5% WATER 100 ML IV SCH (17:00)
[2020-06-07] MEDS ORDERED: MORPHINE SULFATE 4 MG/ML CPJ (NOT FOR IM USE) IV NR (18:00)
[2020-06-07] MEDS ORDERED: HEPARIN BOLUS PRN aPTT 37-44 IV ×2 (19:00)
[2020-06-07] MEDS ORDERED: HEPARIN 80 UNITS/KG BOLUS IV NR ×2 (19:00)
[2020-06-07] MEDS ORDERED: HEPARIN BOLUS PRN aPTT <36 IV ×2 (19:00)
[2020-06-07] MEDS ORDERED: HEPARIN 25,000 UNITS PREMIX 250 ML IV SCH ×2 (19:00)
[2020-06-07 19:40] VITALS: BP 131/66
== END 2020-06-07 19:53 | disposition short-term general hospital (02) ==
LOC: ER 14:00 → CANBEDREQ 06-08 01:39
DX: A41.9 Sepsis, unspecified organism (principal); L03.115 Cellulitis of right lower limb; I10 Essential (primary) hypertension; M79.671 Pain in right foot; Z98.890 Other specified postprocedural states; Z79.82 Long term (current) use of aspirin; Z79.899 Other long term (current) drug therapy; Z88.0 Allergy status to penicillin
CPT/HCPCS: 36415; 71045; 73630; 80053; 83605; 84145; 84484; 85025; 85610; 85730; 87040; 87077; 93005; 93970; 96365; 96375; 99291; J1644; J3370; J3490; J7030; J7040; J7060

== ENCOUNTER 2020-08-25 15:10 | Emergency (ER) | payer BC ==
[~2020-08-25] VITALS: Ht 167.6 cm; Wt 70.0 kg
[2020-08-25] MEDS ORDERED: MEROPENEM 1,000 MG in SODIUM CHLORIDE 0.9% 100 ML IV STA (16:29)
[2020-08-25] MEDS ORDERED: SODIUM CHLORIDE 0.9% 1000ML BAG (SEPSIS BOLUS) IV ONE (16:30)
[2020-08-25] MEDS ORDERED: VANCOMYCIN 1 G PREMIX 200 ML IV ONE (16:30)
[2020-08-25 17:36] LABS: BASOPHILS % 0.4 % (0.0-2.0); EOSINOPHILS % 0.8 % (0.0-5.0); HEMATOCRIT. 24.4 % (36.0-48.0); HEMOGLOBIN. 7.5 g/dL (12.0-16.0); LYMPHOCYTES % 24.2 % (20.0-50.0); MONOCYTES % 5.9 % (2.0-8.0); NEUTROPHILS % 68.7 % (40.0-76.0); PLATELET 414 x1000/uL (130-400); RED BLOOD CELL COUNT 3.13 mill/uL (4.2-5.4); RED CELL DISTRIBUTION WIDTH 17.9 % (11.6-14.6)
[2020-08-25 17:41] LABS: CHLORIDE 113 mEq/L (98-107)
[2020-08-25 18:15] LABS: INR 1.2; PARTIAL THROMBOPLASTIN TIME 34.3 sec (23.4-31.0); PROTHROMBIN TIME 12.3 sec (9.6-11.0)
[2020-08-25 19:24] LABS: CLARITY URINE TURBID (CLEAR); COLOR URINE DARK YELLOW (YELLOW); KETONES URINE NEGATIVE (NEGATIVE); LEUKOCYTE ESTERASE URINE 3+ (NEGATIVE); NITRITE URINE NEGATIVE (NEGATIVE); OCCULT BLOOD URINE TRACE (NEGATIVE); PH URINE >=9.0 (4.5-8.0); PROTEIN URINE 2+ (NEGATIVE); SPECIFIC GRAVITY URINE 1.021 (1.005-1.030)
[2020-08-25] MEDS ORDERED: VANCOMYCIN 1 G PREMIX 200 ML IV NR (22:45)
[2020-08-25 23:08] VITALS: BP 170/64
== END 2020-08-25 23:22 | disposition short-term general hospital (02) ==
LOC: ER 15:10 → CANBEDREQ 23:45
DX: L89.159 Pressure ulcer of sacral region, unspecified stage (principal); N39.0 Urinary tract infection, site not specified; I10 Essential (primary) hypertension; Z88.0 Allergy status to penicillin; Z88.1 Allergy status to other antibiotic agents; E11.9 Type 2 diabetes mellitus without complications; Z79.899 Other long term (current) drug therapy; Z79.82 Long term (current) use of aspirin
CPT/HCPCS: 36415; 71045; 73630; 80053; 81003; 83605; 84145; 84484; 85025; 85610; 85730; 87040; 87077; 87086; 87186; 93005; 96361; 96365; 96366; 96368; 99285; C1893; J2185; J3370; J7030; J7050